=== PATIENT | male | born 1970 | race Caucasian/White ===

== ENCOUNTER 2024-08-07 13:57 | Outpatient (AMB) | payer MEDICARE, SELFPAY ==
--- NOTE | 2024-08-07 14:03 | MHC.PC.OV ---
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 Intake Note: New patient visit Contract Negotiation Specialist Required: No Allergies ibuprofen [From Motrin] Allergy (Unknown, Verified 08/07/24 14:05) Unknown NSAIDS (Non-Steroidal Anti-Inflamma Allergy (Unknown, Verified 08/07/24 14:05) Unknown Tobacco use date assessed: 08/07/24 Dental Screening Dental Screen Date: 08/07/24 Did you have a dental visit in the last 12 months?: Yes Did you have a dental problem in the last 6 months where you did not have access to dental care?: No Was dental information given to patient?: Patient has dentist HPI HPI Comments History of Present Illness Details 54 year old male with a past medical history of hypertension, anxiety & depression, diverticulitis, tinnitus and MARINA presenting for follow up BH: Anxiety, depression stable. Lots of psychosocial stressors. On sertraline-was last sent for 50mg was taking 75mg. CV: on amlodipine 10mg daily. Family history of heart of disease. Interested in coronary artery calcium testing. Also interested in GLP. He has been unable to lose weight with diet and exercise MSK: neck pain, radiculopathy-R. Colon cancer screening-[facility] DR Tonio [facility]AL: Denies weight loss, fever and chills. HEENT: Denies changes in vision and hearing. RESPIRATORY: Denies SOB and cough. CV: Denies palpitations and CP GI: Denies abdominal pain, nausea, vomiting and diarrhea. : Denies dysuria and urinary frequency. MSK: Denies new myalgia and joint pain. SKIN: Denies rash and pruritus. NEUROLOGICAL: Denies headache PSYCHIATRIC: Denies recent changes in mood. PHYSICAL EXAM: GENERAL: Alert and oriented x 3. NAD EYES: EOMI. Anicteric. HENT: Moist mucous membranes. No scleral icterus. No cervical lymphadenopathy. LUNGS: Clear to auscultation bilaterally. CARDIOVASCULAR: Regular rate and rhythm. No murmur. No JVD. ABDOMEN: Soft, non-tender +bs EXTREMITIES: No edema. Non-tender. SKIN: No rashes or lesions. Warm. NEUROLOGIC: No focal neurological deficits. CN II-XII grossly intact PSYCHIATRIC: Cooperative. Appropriate mood and affect PFSH Surgical History Hx of cholecystectomy Hx of appendectomy Family History (Updated 08/07/24 @ 14:07 by Faith Shah CMA) Maternal Grandmother Colon cancer Other FH: mental illness Substance use Social History Housing: House Patient Tobacco Use Status: Former Tobacco user Cigarette Packs Per Day: 1 Years Smoked: 15 service: No Current occupational status: employed Current occupation: Customer relations Current occupational exposures/hazards: No Hearing needs: Yes (hearing loss both ears) Vision needs: Yes (glasses) Questionnaire PHQ-9 Over the last 2 weeks, how often have you been bothered by any of the following problems? 1. Little interest or pleasure in doing things: not at all 2. Feeling down, depressed, or hopeless: not at all 3. Trouble falling or staying asleep, or sleeping too much: not at all 4. Feeling tired or having little energy: not at all 5. Poor appetite or overeating: several days 6. Feeling bad about yourself - or that you are a failure or have let yourself or your family down: not at all 7. Trouble concentrating on things, such as reading the newspaper or watching television: not at all 8. Moving or speaking so slowly that other people could have noticed. Or the opposite - being so fidgety or restless that you have been moving around a lot more than usual: not at all 9. Thoughts that you would be better off or of hurting yourself in some way: not at all Total score: 1 Depression Screening Interpretation: Negative Depression Screening Done: Yes 41019 - PHQ-9 Billing: Yes Source: Developed by Drs. Kingsley Post, Sharda Plasencia, Michael Vivar and colleagues, with an educational shauna from [email or web address]. Thrive Questionnaire Date Thrive assessed: 07/31/24 I am a: Patient What is your living situation today?: I have a steady place to live Within the past 12 months, did the food you bought not last and you didn't have the money to get more?: Never true Within the past 12 months, did you worry whether your food would run out before you got money to buy more?: Never true Do you have trouble paying for medicines?: No Do you have trouble getting transportation to medical appointments?: No Do you have trouble paying your heating and electricity bill?: No Do you have trouble taking care of your child, family member or friend?: No Do you have trouble with day-to-day activities such as bathing, preparing meals, shopping, managing finances, etc.?: No Are you currently unemployed and looking for a job?: No Are you interested in more education?: No Please select the resources that you would like help with: None Currently or been in a relationship where the following occur: No concerns reported THRIVE Score: 0 AUDIT C Alcohol Use Questionnaire (AUDIT-C) 1. How often do you have a drink containing alcohol?: 2-3 times a week 2. How many drinks containing alcohol do you have on a typical day when you are drinking?: 3 or 4 3. How often do you have six or more drinks on one occasion?: Monthly Total Score: 6 ANN-7 AMB Questionnaire ANN-7 Date ANN - 7 assessed: 08/07/24 Feeling nervous, anxious, or on edge: 0 = Not at all Not being able to stop or control worryin = Not at all Worrying too much about different things: 0 = Not at all Trouble relaxin = Not at all Being so restless that it is hard to sit still: 0 = Not at all Becoming easily annoyed or irritable: 0 = Not at all Feeling afraid as if something awful might happen: 0 = Not at all Total ANN-7 score (0-4 normal; 5-9 mild; 10-14 moderate; 15-21 severe): 0 Source: Developed by Drs. Kingsley Post, Sharda Plasencia, Michael Vivar and colleagues, with an educational shauna from [email or web address]. ANN-7 Assessment Billing ANN-7 Assessment Tool: ANN-7 Assessment 21851 Physical exam (Primary Care) Vital Signs: Last Vital Signs Pulse 67 08/07/24 14:12 BP 136/84 08/07/24 14:12 Pulse Ox 97 08/07/24 14:12 Oxygen Delivery Method Room Air 08/07/24 14:12 Tobacco/Smoking Status: Tobacco use Status Tobacco use date assessed 08/07/24 08/07/24 14:16 Patient Tobacco Use Status Former Tobacco user 08/07/24 14:16 PHQ-9: PHQ-9 Score PHQ-9: Total score 1 08/07/24 14:21 Depression Screening Interpretation: Negative Thrive Assessment: Date of Thrive Assessment Date Thrive assessed 07/31/24 08/07/24 14:16 Currently or been in a relationship where the following occur: No concerns reported Coding Level of Care Code Est Pt Level 4 (72923) Complex EM visit Add On G2211 Diagnoses Primary hypertension I10 Hypertension type: primary hypertension Recurrent major depressive disorder, in partial remission F33.41 Major depression recurrence: recurrent Active/Remission status: in partial remission Cervical radiculitis M54.12 Additional Codes ANN-7 Assessment Billing - ANN-7 Assessment Tool: ANN-7 Assessment [id number] ([id number]) PHQ-9 - 89220 - PHQ-9 Billing: Yes ([id number]) Assessment & Plan Assessment & Plan (1) Hypertension: Code(s): I10 - Essential (primary) hypertension Category: Medical Qualifiers: Hypertension type: primary hypertension Qualified Code(s): I10 - Essential (primary) hypertension Plan: controlled on current medications (2) Major depression: Code(s): F32.9 - Major depressive disorder, single episode, unspecified Category: Medical Qualifiers: Major depression recurrence: recurrent Active/Remission status: in partial remission Qualified Code(s): F33.41 - Major depressive disorder, recurrent, in partial remission Plan: Corrected script to 75 mg daily (3) Cervical radiculitis: Code(s): M54.12 - Radiculopathy, cervical region Category: Medical Plan: stable. consider xray, referral if worsens Plan Obesity, htn. Wegovy ordered Orders: Orders CT Coronary Calcium Score 08/07/24 Complete Blood Count Auto Diff 08/07/24 F32.9 - Major depressive disorder, single episode, unspecified, I10 - Essential (primary) hypertension, M54.12 - Radiculopathy, cervical region, R73.01 - Impaired fasting glucose, Z13.0 - Encounter for screening for diseases of the blood and blood-forming organs and certain disorders involving the immune mechanism, Z13.228 - Encounter for screening for other metabolic disorders Comprehensive Met. Panel 08/07/24 F32.9 - Major depressive disorder, single episode, unspecified, I10 - Essential (primary) hypertension, M54.12 - Radiculopathy, cervical region, R73.01 - Impaired fasting glucose, Z13.0 - Encounter for screening for diseases of the blood and blood-forming organs and certain disorders involving the immune mechanism, Z13.228 - Encounter for screening for other metabolic disorders Lipid Panel 08/07/24 F32.9 - Major depressive disorder, single episode, unspecified, I10 - Essential (primary) hypertension, M54.12 - Radiculopathy, cervical region, R73.01 - Impaired fasting glucose, Z13.0 - Encounter for screening for diseases of the blood and blood-forming organs and certain disorders involving the immune mechanism, Z13.228 - Encounter for screening for other metabolic disorders Hemoglobin A1c 08/07/24 F32.9 - Major depressive disorder, single episode, unspecified, I10 - Essential (primary) hypertension, M54.12 - Radiculopathy, cervical region, R73.01 - Impaired fasting glucose, Z13.0 - Encounter for screening for diseases of the blood and blood-forming organs and certain disorders involving the immune mechanism, Z13.228 - Encounter for screening for other metabolic disorders Prostate Specific Antigen 08/07/24 I10 - Essential (primary) hypertension, R73.01 - Impaired fasting glucose, Z12.5 - Encounter for screening for malignant neoplasm of prostate, Z13.0 - Encounter for screening for diseases of the blood and blood-forming organs and certain disorders involving the immune mechanism, Z13.228 - Encounter for screening for other metabolic disorders Medications: Rene Cantu (semaglutide (weight loss)) administer weeks 1 through 4 of therapy 0.25 mg (0.5 mL) subcut QWEEK 2 mL 3RF NS azithromycin 500 mg PO DAILY 5 tabs 0RF 5 days Changed From sertraline 50 mg PO DAILY 90 tabs 3RF To sertraline 75 mg (1.5 x 50 mg) PO DAILY 90 tabs 3RF Refilled amlodipine 10 mg PO DAILY 90 tabs 3RF
[2024-08-07 14:12] VITALS: BP 136/84; PULSE 67; O2SAT 97
== END 2024-08-07 15:00 | disposition home or self-care (01) ==
PROVIDERS: PCP Internal Medicine; Visit Provider Internal Medicine
DX: I10 Essential (primary) hypertension (principal); F33.41 Major depressive disorder, recurrent, in partial remission; M54.12 Radiculopathy, cervical region

== ENCOUNTER → 2024-08-07 13:57 | Outpatient (BNVA) | payer OTHER, SELFPAY | PROVIDERS: PCP Internal Medicine; Visit Provider Internal Medicine | DX: I10 Essential (primary) hypertension (principal); F33.41 Major depressive disorder, recurrent, in partial remission; M54.12 Radiculopathy, cervical region; Z79.899 Other long term (current) drug therapy | CPT/HCPCS: 96127 ==

== ENCOUNTER 2024-08-07 15:03 | Outpatient (REF) | payer OTHER, SELFPAY ==
[2024-08-07 17:39] LABS: MANUAL DIFF FLAG NO
[2024-08-07 17:53] LABS: Basophils Absolute Auto 0.1 X10*3/uL (0.0-0.2); Basophils Percent Auto 0.5 % (0-2); Eosinophils Absolute Auto 0.2 X10*3/uL (0.0-0.4); Eosinophils Percent Auto 1.9 % (0-4); Hematocrit 46.4 % (42.0-52.0); Hemoglobin 16.2 g/dl (14.0-18.0); Imm Gran Abs Auto 0.06 X10*3/uL (0.00-0.03); Imm Gran Pct Auto 0.6 % (0.0-0.4); Lymphocytes Absolute Auto 2.3 X10*3/uL (1.2-4.9); Lymphocytes Percent Auto 21.2 % (20-40); Mean Corpuscular HGB Conc 34.9 g/dl (31.0-36.0); Mean Corpuscular Hemoglobin 32.3 pg (27.0-33.0); Mean Corpuscular Volume 92.6 fL (80.0-98.0); Monocytes Percent Auto 9.7 % (2-11); Neutrophils Absolute Auto 7.1 x10*3/uL (2.0-8.3); Neutrophils Percent Auto 66.1 % (45-73); Platelet Count 296 X10*3/uL (160-400); Red Blood Count 5.01 X10*6/uL (4.60-5.80); Red Cell Distribution Width 12.4 % (11.0-16.0); White Blood Count 10.7 X10*3/uL (4.8-10.8)
[2024-08-07 18:26] LABS: Alanine Aminotransferase 67 U/L (0-40); Albumin Level 4.2 g/dL (3.5-5.0); Alkaline Phosphatase 61 U/L (39-117); Anion Gap 9 (12-20); Aspartate Amino Transferase 39 U/L (5-37); Bilirubin Total 0.4 mg/dL (0.0-1.0); Blood Urea Nitrogen 10 mg/dL (9-16); Calcium 9.1 mg/dL (8.4-10.2); Carbon Dioxide 25 mmol/L (22-29); Chloride 110 mmol/L (96-108); Cholesterol 185 mg/dL (<200); Estimated Glomerular Filt Rate > 60; Glucose Random 71 mg/dL (60-115); HDL Cholesterol 39 mg/dL (>40); LDL Cholesterol Calculated 104 mg/dL (<100); Potassium 3.6 mmol/L (3.3-5.1); Sodium 140 mmol/L (135-145); Total Protein 7.6 g/dL (6.5-8.0); Triglycerides 211 mg/dL (<150)
[2024-08-07 18:45] LABS: Prostate Specific Antigen 0.78 ng/mL (<0.05-4.0)
[2024-08-08 06:04] LABS: Estimated Average Glucose 100 mg/dL; Hemoglobin A1C 128.5397 umol/L; Hemoglobin A1c % 5.1 % (<6.0); Total Hemoglobin (HGBA1C) 4026.2945 umol/L
== END 2024-08-07 15:04 | disposition home or self-care (01) ==
LOC: HO.WFDLDS 15:03
PROVIDERS: Visit Provider Internal Medicine
DX: I10 Essential (primary) hypertension (principal); F32.9 Major depressive disorder, single episode, unspecified; M54.12 Radiculopathy, cervical region; Z13.0 Encounter for screening for diseases of the blood and blood-forming organs and certain disorders involving the immune mechanism; Z13.228 Encounter for screening for other metabolic disorders; R73.01 Impaired fasting glucose; Z12.5 Encounter for screening for malignant neoplasm of prostate
CPT/HCPCS: 36415; 80053; 80061; 83036; 84153; 85025

== ENCOUNTER 2024-08-14 09:51 | Outpatient (AMB) | payer OTHER, SELFPAY ==
--- NOTE | 2024-08-14 10:16 | MHC.OFFWIV ---
Intake Vital Signs 08/14/24 10:20 Height 5 ft 11 in Weight 276 lb BMI 38.5 BP 142/78 H Blood Pressure Location Lt brachial Position Sitting Respiration 14 Pulse 54 Pulse Source Pulse Oximeter Temp 97.8 F Temp Source Oral Pulse Oximetry (%) 96 Oxygen Delivery Method Simple Mask Intake Visit Reasons: EST/ SORE THROAT/TIRED/COLD/EAR RINGING Intake Note: Patient complaining of sore throat, congestion, cough with production, ears feel blocked, tired and bodyaches x 2 weeks Patient Tobacco Use Status: Former Tobacco user Allergies ibuprofen [From Motrin] Allergy (Unknown, Verified 08/14/24 10:27) Unknown NSAIDS (Non-Steroidal Anti-Inflamma Allergy (Unknown, Verified 08/14/24 10:27) Unknown Medication List - Last Reconciled 08/14/24 by Bettina Jerome, [facility]- amlodipine 10 mg PO DAILY azithromycin 500 mg PO DAILY 5 days sertraline 75 mg (1.5 x 50 mg) PO DAILY Wegovy (semaglutide (weight loss)) 0.25 mg (0.5 mL) subcut QWEEK NS Do you need a note to return to daycare/school/sports/work: No HPI HPI Comments History of Present Illness Details 54-year-old male here today with chief complaints of sore throat, ringing and fullness in the ears and sinus congestion that has been present for greater than 2 weeks. He reports that he developed general flu-like symptoms several weeks ago. He recently saw his primary care provider who prescribed him azithromycin 500 mg for 5 days. This was prescribed 08/07/2024. He did complete the course however he did not have improvement in his symptoms. Exam Awake alert NAD Sclera and conjunctiva clear bilat Nares patent, turbinates edematous bilat, nasal polyp on the left, + sinus tenderness with palpation bilat frontal TM intact bilat, mild congestion on the left, bulging, dull, loss of landmarks on right MMM, pharynx mild erythema without exudate, posterior nasal drip RRR LS CTAB Plan Rapid strep done in the office today negative. We will treat him for acute bacterial sinusitis with Augmentin. Educated about taking medication with food. Also prescribe prednisone for 3 days to help decompress his sinuses and to help with his symptoms. Advised to also take this with food. If he does not have improvement or resolution of his symptoms advised to return to the office for further evaluation. This note is constructed using voice recognition software. While every effort has been made to ensure accuracy in surgical rn, still errors may have been included Sometimes, these errors may affect the content or meaning of the given sentence . [facility] Surgical History Hx of cholecystectomy Hx of appendectomy Family History (Updated 08/07/24 @ 14:07 by Faith Shah CMA) Maternal Grandmother Colon cancer Other FH: mental illness Substance use Social History Housing: House Patient Tobacco Use Status: Former Tobacco user Cigarette Packs Per Day: 1 Years Smoked: 15 service: No Current occupational status: employed Current occupation: Customer relations Current occupational exposures/hazards: No Hearing needs: Yes (hearing loss both ears) Vision needs: Yes (glasses) Physical Exam Vital Signs: Last Vital Signs Temp 97.8 F 08/14/24 10:20 Pulse 54 08/14/24 10:20 Resp 14 08/14/24 10:20 BP 142/78 H 08/14/24 10:20 Pulse Ox 96 08/14/24 10:20 Oxygen Delivery Method Simple Mask 08/14/24 10:20 BMI result Body Mass Index 38.5 Results AMB Rapid Strep AMB Rapid Strep Negative Last Edit by Em Okeefe MA on 08/14/24 10:33 Results Reviewed Results Reviewed: Laboratory Last Values Strep Scn Rapid Clinic Negative 08/14/24 10:26 Assessment & Plan Assessment & Plan (1) Acute bacterial sinusitis: Code(s): J01.90 - Acute sinusitis, unspecified; B96.89 - Other specified bacterial agents as the cause of diseases classified elsewhere Plan . Orders: Orders AMB Rapid Strep Screen Today Z13.9 - Encounter for screening, unspecified Medications: New amoxicillin-pot clavulanate 875-125 mg 1 tab PO BID 7 days 14 tabs 0RF prednisone 20 mg PO DAILY 3 tabs 0RF Discontinued azithromycin Discontinued Reason: Patient Completed Course 500 mg PO DAILY 5 days 5 tabs 0RF Patient Instructions: What Is It? Sinuses are air-filled spaces behind the bones of the upper face: between the eyes and behind the forehead, nose and cheeks. The lining of the sinuses are made up of cells with tiny hairs on their surfaces called cilia. Other cells in the lining produce mucus. The mucus traps germs and pollutants and the cilia push the mucus out through narrow sinus openings into the nose. When the sinuses become inflamed or infected, the mucus thickens and clogs the openings to one or more sinuses. Fluid builds up inside the sinuses causing increased pressure. Also bacteria can become trapped, multiply and infect the lining. This is sinusitis. Prevention There are some measures you can take to decrease your risk of developing sinusitis. If you smoke cigarettes, you should quit. The smoke can irritate nasal passageways and increase the likelihood of infection. Nasal allergies can trigger sinus infections, too. By identifying the allergen (the substance causing the allergic reaction) and avoiding it, you can help prevent sinusitis. If you have congestion from a cold or allergies, the following may help to reduce the risk of developing sinusitis: Drink lots of water. This thins nasal secretions and keeps mucous membranes moist. Use steam to soothe nasal passages. Breathe deeply while standing in a hot shower, or inhale the vapor from a basin filled with hot water while holding a towel over your head. Avoid blowing your nose with great force, which can push bacteria into the sinuses. Some doctors advise periodic home nasal washings to clear secretions. This may help prevent, and also treat, sinus infections. Treatment Many sinus infections improve without treatment. However, several medications may speed recovery and reduce the chance that an infection will become chronic. Decongestants - Congestion often triggers sinus infections, and decongestants can open the sinuses and allow them to drain. Several are available: Pseudoephedrine (Sudafed) is available without prescription, alone or in combination with other medications in multi-symptom cold and sinus remedies. Pseudoephedrine can cause insomnia, racing pulse and jitteriness. Do not use if you have high blood pressure or a heart condition. Phenylephrine (such as Sudafed PE) is an alternative cukv-tyx-rkspivz oral decongestant. If you take products containing oral phenylephrine, check with the pharmacist to be certain there is no interaction with other medications you take. Oxymetazoline (Afrin, Dristan and others) and phenylephrine (Denilson-Synephrine and others) are found in nasal sprays. They are effective and may be less likely to cause the side effects seen with pseudoephedrine. However, using a nasal decongestant for more than three days can cause worse symptoms when you stop the medication. This is called the rebound effect. Antihistamines - These medications help to relieve the symptoms of nasal allergies that lead to inflammation and infections. However, some doctors advise against using antihistamines during a sinus infection because they can cause excessive drying and slow the drainage process. Vwsi-aza-lwecnxg antihistamines include diphenhydramine (Benadryl and others), chlorpheniramine (Chlor-Trimeton and others) and loratadine (Claritin). Fexofenadine (Carleen) and cetrizine (Zyrtec) are available by prescription. Nasal steroids - Anti-inflammatory sprays such as mometasone (Nasonex) and fluticasone (Flonase), both available by prescription, reduce swelling of nasal membranes. Like antihistamines, nasal steroids can be most useful for those who have nasal allergies. Nasal steroids tend to produce less drying than antihistamines. Unlike nasal decongestants, nasal steroids can be used for prolonged periods. Saline nasal sprays - These salt-water sprays are safe to use and can provide some relief by adding moisture to the nasal passages, thinning mucus secretions and helping to flush out any bacteria that may be present. Pain relievers - Acetaminophen (Tylenol), ibuprofen (Advil, Motrin and others) or naproxen (Aleve) can be taken sinus pain. Antibiotics - Your doctor may prescribe an antibiotic if he or she suspects that a bacterial infection is causing your sinusitis. If you start taking an antibiotic, complete the entire course so that the infection is completely killed off. Not all cases of sinusitis require antibiotic treatment: Talk with your doctor about whether an antibiotic is right for you. Keep in mind that antibiotics can cause side effects, such as allergic reactions, rash and diarrhea. In addition, overusing antibiotics eventually leads to the spread of bacteria that no longer can be killed by the most commonly prescribed antibiotics. When To Call A Professional Contact a doctor if you experience facial pain along with a headache and fever, cold symptoms that last longer than seven to 10 days, or persistent green discharge from the nose. If your symptoms don't improve within a week of beginning treatment, call your doctor. Call sooner if symptoms are getting worse. If you have repeated bouts of acute sinusitis, you may have allergies or another treatable cause of sinus congestion. Ask your doctor for advice. Coding Level of Care Code Est Pt Level 3 (28838) Diagnoses Acute bacterial sinusitis J01.90; B96.89
[2024-08-14 10:20] VITALS: BP 142/78; PULSE 54; RESP 14; TEMP 36.6; O2SAT 96; BMI 38.5
--- OUTSIDE RECORDS SUMMARY | 2024-08-16 14:14 | XMS_ITS | Continuity of Care Document ---
Author Organization [facility] Rufino Abdiaziz lt Address [address] [place] [address]- Care Team Providers Care Cage Clerk Name Role Phone Not on Staff, PCP Primary Care Physician Unavail able Encounter [facility] Date(s): 07/04/24 - 08/03/24 [facility] [place] Adult [address] [place] [address]- Encounter Type: Triage Allergies, Adverse Reactions, Alerts Substance Criticality Severity Reaction Reaction Severity Status Motrin Active NSAIDs Active Immunizations Given and Recorded Vaccine Date Status Refusal Reason influenza virus vaccine, inactivated 07/25/21 Give n SARS-CoV-2 (COVID-19) mRNA-1273 vaccine 12/15/20 R ecorded SARS-CoV-2 (COVID-19) mRNA-1273 vaccine 11/17/20 R ecorded tetanus/diphtheria/pertussis, acel(Tdap) 07/02/11 Recorded tetanus-diphtheria toxoids (Td) 03/20/02 Recorded Medications amLODIPine 10 mg oral tablet 10 mg, 1, tablet, By Mouth, Daily, # 90 tablet, Refills 0, Maintenance, 07/24/21 12:43:00 AM EST, Partial fill upon patient request if the prescription is for a schedule II opioid drug. Start Date: 07/24/21 Status: Ordered Quantity: 90.0 Unit: tablet Repeat number: 1 metroNIDAZOLE 500 mg oral tablet See Instructions, TAKE 1 TABLET BY MOUTH TWICE A DAY FOR 7 DAYS, # 14 tablet, 0 Refills, Maintenance, 08/25/23 12:39:00 PM EST, [id number], 177, cm, 07/23/23 9:35:00 EST, Height, 120.5, kg, 07/19/23 15:55:00 EST, Dry Weight Start Date: 08/25/23 Status: Ordered Quantity: 14.0 Unit: tablet Repeat number: 1 Sertraline = 75 mg, By Mouth, Daily, 0 Refills, Maintenance, 07/24/21 12:44:00 AM EST, Partial fill upon patient request if the prescription is for a schedule II opioid drug. Start Date: 07/24/21 Status: Ordered Repeat number: 1 sertraline 50 mg oral tablet See Instructions, TAKE 1 AND 1/2 TABLETS BY MOUTH DAILY, # 135 tablet, 3 Refills, Maintenance, 09/25/23 4:15:00 PM EST, [id number], 177, cm, 07/23/23 9:35:00 EST, Height, 120.5, kg, 07/19/23 15:55:00 EST, Dry Weight Start Date: 09/25/23 Status: Ordered Quantity: 135.0 Unit: tablet Repeat number: 4 Tylenol 325 mg oral tablet 650 mg, 2, tablet, By Mouth, 4 times a day, # 50 tablet, Refills 0, Tot. Refills 0, Soft Stop, 07/25/21 9:44:00 AM EST, Route to Pharmacy Electronically, [facility], Partial fill upon patient request if the prescription is for a schedule II opioid drug., 180, cm, 07/24/21 13:57:00 EST, Height, 116, kg, 07/24/21 0:37:00 EST, Dry Weight Start Date: 07/25/21 Stop Date: 08/01/21 Status: Ordered Quantity: 50.0 Unit: tablet Repeat number: 1 Problem List Condition Confirmation Course Effective Dates Status Health St atus Informant Anxiety Confirmed Active Cervical radiculitis Confirmed Active Hiatal hernia Confirmed Active Hypertension Confirmed Active Major depressive disorder, recurrent Confirmed Active Scleritis Confirmed Active Severe obesity (BMI 35.0-39.9) with comorbidity Confirmed Active Apnea, sleep Confirmed Active Tinnitus Confirmed Active Social History Social History Type Response Smoking Status Former smoker, quit more than 30 days ago; Other: Quit in 2004- PPD; entered on: 07/23/23 Sex Sex Representation Male (finding) Patient Care team information Care Team Personnel Name: Ifeanyi Kelley RN Position: [facility] RN Member Role: Primary Care Nurse Name: Not on Staff, PCP Position: [facility] Physician (General Medicine) Member Role: PCP Care Team Related Persons Name: VALENTIN HOLLANDHLEEN Insurance Providers Guarantor name: CHAPIS [facility] [employer] [facility] Information #: 1 Payer: [employer] Member Number: NA Policy Number: NA Group Number: NA
== END 2024-08-14 10:50 | disposition home or self-care (01) ==
PROVIDERS: PCP Internal Medicine; Visit Provider Nurse Practitioner Family
DX: J01.90 Acute sinusitis, unspecified (principal); B96.89 Other specified bacterial agents as the cause of diseases classified elsewhere; Z13.9 Encounter for screening, unspecified

== ENCOUNTER → 2024-08-14 09:51 | Outpatient (BNVA) | payer OTHER, SELFPAY | PROVIDERS: PCP Internal Medicine; Visit Provider Nurse Practitioner Family | DX: J01.90 Acute sinusitis, unspecified (principal); B96.89 Other specified bacterial agents as the cause of diseases classified elsewhere | CPT/HCPCS: 87880 ==

== ENCOUNTER 2025-03-27 15:47 | Outpatient (AMB) | payer BC, SELFPAY ==
--- NOTE | 2025-03-27 16:09 | A.OFFPC_ITS ---
Vital Signs 03/27/25 16:18 Height 5 ft 11 in Weight 264 lb 4 oz BMI 36.9 BP 134/82 Blood Pressure Location Lt brachial Position Sitting Respiration 14 Pulse 64 Pulse Source Pulse Oximeter Pulse Oximetry (%) 99 Oxygen Delivery Method Room Air Intake Visit Reasons: anxiety Allergies ibuprofen (From Motrin) Allergy (Unknown, Verified 08/14/24 10:27) Unknown NSAIDS (Non-Steroidal Anti-Inflamma Allergy (Unknown, Verified 08/14/24 10:27) Unknown Tobacco use date assessed: 08/07/24 Dental Screening Dental Screen Date: 08/07/24 HPI HPI Comments History of Present Illness Details 54 year old male with a past medical his tory of hypertension, anxiety & depression, diverticulitis, tinnitus and MARINA presenting for follow up BH: Anxiety, depression-currently on zoloft 75mg daily. Increase anxiety, finding it hard to concentrate, recall peoples names. Lots of psychosocial stressors. CV: on amlodipine 10mg daily. Family history of heart of disease. Ordered coronary calcium. He has lost 12 pounds since his last visit MSK: neck pain, radiculopathy-stable GI: Patient reports continued left sided abdominal discomfort and a small umbilical hernia. He had a cat scan in 2022. Colon cancer screening mnd-[facility] DR Tonio VICKERS see HPI PHYSICAL EXAM: GENERAL: Alert and oriented x 3. NAD EYES: EOMI. Anicteric. HENT: Moist mucous membranes. No scleral icterus. No cervical lymphadenopathy. LUNGS: Clear to auscultation bilaterally. CARDIOVASCULAR: Regular rate and rhythm. No murmur. No JVD. ABDOMEN: Soft, non-tender +bs, small umbilical hernia ~4cm palpable abdominal mass/lipoma EXTREMITIES: No edema. Non-tender. SKIN: No rashes or lesions. Warm. NEUROLOGIC: No focal neurological deficits. CN II-XII grossly intact PSYCHIATRIC: Cooperative. Appropriate mood and affect PFSH Surgical History Hx of cholecystectomy Hx of appendectomy Family History Maternal Grandmother Colon cancer Other FH: mental illness Substance use Social History Housing: House Patient Tobacco Use Status: Former Tobacco user Cigarette Packs Per Day: 1 Years Smoked: 15 service: No Current occupational status: employed Current occupation: Customer relations Current occupational exposures/hazards: No Hearing needs: Yes (hearing loss both ears) Vision needs: Yes (glasses) Questionnaire PHQ-9 Over the last 2 weeks, how often have you been bothered by any of the following problems? 1. Little interest or pleasure in doing things: several days 2. Feeling down, depressed, or hopeless: several days 3. Trouble falling or staying asleep, or sleeping too much: not at all 4. Feeling tired or having little energy: several days 5. Poor appetite or overeating: nearly every day 6. Feeling bad about yourself - or that you are a failure or have let yourself or your family down: several days 7. Trouble concentrating on things, such as reading the newspaper or watching television: several days 8. Moving or speaking so slowly that other people could have noticed. Or the opposite - being so fidgety or restless that you have been moving around a lot more than usual: not at all 9. Thoughts that you would be better off or of hurting yourself in some way: not at all Total score: 8 Depression Screening Interpretation: Positive Depression Screening Done: Yes 15000 - PHQ-9 Billing: Yes Source: Developed by Drs. Kingsley Post, Sharda Plasencia, Michael Vivar and colleagues, with an educational shauna from [employer]. Thrive Questionnaire Date Thrive assessed: 07/31/24 I am a: Patient What is your living situation today?: I have a steady place to live Within the past 12 months, did the food you bought not last and you didn't have the money to get more?: Never true Within the past 12 months, did you worry whether your food would run out before you got money to buy more?: Never true Do you have trouble paying for medicines?: No Do you have trouble getting transportation to medical appointments?: No Do you have trouble paying your heating and electricity bill?: No Do you have trouble taking care of your child, family member or friend?: No Do you have trouble with day-to-day activities such as bathing, preparing meals, shopping, managing finances, etc.?: No Are you currently unemployed and looking for a job?: No Are you interested in more education?: No Please select the resources that you would like help with: None Currently or been in a relationship where the following occur: No concerns reported THRIVE Score: 0 AUDIT C Alcohol Use Questionnaire (AUDIT-C) 1. How often do you have a drink containing alcohol?: 2-4 times a month 2. How many drinks containing alcohol do you have on a typical day when you are drinking?: 3 or 4 3. How often do you have six or more drinks on one occasion?: Monthly Total Score: 5 ANN-7 AMB Questionnaire ANN-7 Date ANN - 7 assessed: 08/07/24 Feeling nervous, anxious, or on edge: 2 = More than half the days Not being able to stop or control worryin = Several days Worrying too much about different things: 1 = Several days Trouble relaxin = Several days Being so restless that it is hard to sit still: 1 = Several days Becoming easily annoyed or irritable: 2 = More than half the days Feeling afraid as if something awful might happen: 0 = Not at all Total ANN-7 score (0-4 normal; 5-9 mild; 10-14 moderate; 15-21 severe): 8 Source: Developed by Drs. Kingsley Post, Sharda Plasencia, Michael Vivar and colleagues, with an educational shauna from [employer]. Physical exam (Primary Care) Tobacco/Smoking Status: Tobacco use Status Tobacco use date assessed 08/07/24 03/27/25 16:11 Patient Tobacco Use Status Former Tobacco user 03/27/25 16:11 PHQ-9: PHQ-9 Score PHQ-9: Total score 8 03/27/25 16:11 Depression Screening Interpretation: Positive Thrive Assessment: Date of Thrive Assessment Date Thrive assessed 07/31/24 03/27/25 16:11 Currently or been in a relationship where the following occur: No concerns reported Coding Level of Care Code Est Pt Level 4 (07483) Complex EM visit Add On G2211 Diagnoses Recurrent major depressive disorder, in partial remission F33.41 Major depression recurrence: recurrent Active/Remission status: in partial remission Impaired fasting glucose R73.01 Screening for metabolic disorder Z13.228 Abdominal mass, unspecified abdominal location R19.00 Abdominal location: unspecified location Additional Codes PHQ-9 - 56549 - PHQ-9 Billing: Yes ([id number]) Assessment & Plan Assessment & Plan (1) Major depression: Code(s): F32.9 - Major depressive disorder, single episode, unspecified Category: Medical Qualifiers: Major depression recurrence: recurrent Active/Remission status: in partial remission Qualified Code(s): F33.41 - Major depressive disorder, recurrent, in partial remission (2) Impaired fasting glucose: Code(s): R73.01 - Impaired fasting glucose Category: Medical (3) Screening for metabolic disorder: Code(s): Z13.228 - Encounter for screening for other metabolic disorders Category: Medical (4) Abdominal mass: Code(s): R19.00 - Intra-abdominal and pelvic swelling, mass and lump, unspecified site Category: Medical Qualifiers: Abdominal location: unspecified location Qualified Code(s): R19.00 - Intra-abdominal and pelvic swelling, mass and lump, unspecified site Plan 54 year old male presenting for follow up HTN-adequately controlled on current medications Anxiety is suboptimally controlled-start sertraline 100mg daily Trial adderal xr 10mg daily abdominal mass/lipoma-refer general surgery Orders: Referrals General Surgery Referral R19.00 - Intra-abdominal and pelvic swelling, mass and lump, unspecified site Medications: New sertraline 100 mg PO DAILY 90 tabs 3RF dextroamphetamine-amphetamine 10 mg ER (Adderall XR) Partial Fill upon patient request. 10 mg PO DAILY 30 caps 0RF Discontinued Wegovy (semaglutide (weight loss)) administer weeks 1 through 4 of therapy Discontinued Reason: Doctor's Order 0.25 mg (0.5 mL) subcut QWEEK 2 mL 3RF NS sertraline Discontinued Reason: Doctor's Order 75 mg (1.5 x 50 mg) PO DAILY 135 tabs 3RF amoxicillin-pot clavulanate 875-125 mg Discontinued Reason: Doctor's Order 1 tab PO BID 7 days 14 tabs 0RF
[2025-03-27 16:18] VITALS: BP 134/82; PULSE 64; RESP 14; O2SAT 99; BMI 36.9
--- OUTSIDE RECORDS SUMMARY | 2025-03-27 16:31 | XMS_ITS | Data Portability ---
Author Organization [place] - [facility], Allergy Address [address] [address] Care Team Providers [facility] Social Worker Name Role Phone LIZANDRO MEDINA Primary Care Provider [phone] Assessment Encounter Date Assessment Date Assessment LastModified by Organization Details LastModified Time 10/11/2024 10/11/2024 54-year-old male with history of otosclerosis status post right st[place] [address] Ward presents for reevaluation of his hearing. He reports gradual hearing loss in both ears over the last year. Bilateral tinnitus is stable. Cerumen impaction removed from right external auditory canal. TMs appear intact and well-aerated. Audiogram 06/2024 at [facility] demonstrated mixed hearing loss in normal range. We discussed he is not a candidate for hearing aids at this time. Recommend left stapedectomy consult with Dr. Ward with HTF in 2-3 months. [email or web address] Not available 10/11/2024 10:33:53 01/30/2025 01/30/2025 Patient with known otosclerosis who continues to demonstrate excellent postoperative hearing result on the right. He has very mild conductive component to his hearing loss bilaterally, which is likely indicative of early and stable otosclerosis on the left. Today we went over the audiometric testing and discussed the fact that while he may be having difficulty in certain listening environments, there is not enough hearing loss to warrant use of amplification. We discussed how hearing in background noise can be a natural artifact of the aging process. Reassurance provided. He may follow-up in the future with any additional perceived changes in hearing. [email or web address] Not available 01/30/2025 13:41:06 Plan of Treatment Reminders Order Date Submit Date Provider Last Modified By Organization Details Last Modified Time Details Appointments None record ed. Lab None record ed. Referral None record ed. Procedures None record ed. Surgeries None record ed. Imaging None record ed. Medication Orders None record ed. Patient TargetsNo targets recorded. Patient InstructionsNo instructions recorded. Reason for Referral None Reported. Results Created Date Observation Date Name Description Value Unit Range Abnormal Flag Note LastModifiedBy Organization Detail LastModifiedTime 01/31/20 25 audio gram No observ ation record ed. BARCODE Not Available 2024 15:45:56 Result Notes None recorded. Problems Name Problem SNOMED Code Status Onset Date Resolution Date Notes Provider Name and Address Organization Details Recorded Time Sensorine ural hearing loss of bilateral ears 452143245 Active 2014 Sensorine ural HL, bilateral Not Available [facility] 4 01:09:00 Unilatera l conductiv e hearing loss with unrestric tigist hearing on the contralat eral side Active 2014 Conductiv e hearing loss, unilatera l; Condition : improved Conducti ve hearing loss, unilatera l; Condition : improved Note: Date Diagnosed : 02/20/2015 4:17 PM (389.05) Not Available [facility] 4 02:50:14 Postopera tive follow-up visit Active 2014 Post op; Note: Date Diagnosed : 02/21/2015 7:29 AM (V67.00) Not Available [facility] 4 02:50:16 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 41074806 Active 2014 Otosclero sis involving oval window, nonoblite rative; Note: Changed from 387.9 to 387.0 ( 5 4:26 PM) , Date Diagnosed : 11/22/2014 11:08 AM (387.9) ; Start Date : 5 Otoscle rosis involving oval window, nonoblite rative, right ear; Note: Date Diagnosed : 5 9:07 AM (H80.01) [mapped from ICD9 code: 387.0] Not Available [facility] 4 02:50:11 Conductiv e hearing loss, bilateral 688049473 Active 2014 Conductiv e hearing loss, bilateral ; Note: Date Diagnosed : 11/22/2014 11:08 AM (389.06) ; Start Date : 5 Conduct reinier hearing loss, bilateral ; Note: Date Diagnosed : 5 9:15 AM (H90.0) [mapped from ICD9 code: 389.06] Not Available [facility] 4 02:50:14 Bilateral tinnitus 39611683353 02 Active 2024 TILA HAHN PA-C [address], [place], [address] , [facility] - [facility] 5 10:33:58 Mixed conductiv e and sensorine ural hearing loss, bilateral 409504503 Active 2024 TILA HAHN PA-C [address], [place], [address] , [place] - [facility] 5 10:34:48 Impacted cerumen in right ear 69036563424 76286 Active 2024 TIL[facility] HAHN [facility]-C [address] [facility] [place], [place], [address] , [place] - [facility] 5 10:35:17 Mixed conductiv e and sensorine ural hearing loss, bilateral 963265481 Active 2024 TAMEKA PORTILLO [address] [facility] [place] [address], [place], [address] , [facility] - [facility] 13:10:37 Otosclero sis 94097176 Active 2024 LINDY WARD MD [address] [facility] [place] [address], [place], [address] , [facility] - [facility] 13:40:12 Problem Notes None recorded. Procedures Surgical History Date Name Laterality Status Provider Name and Address Organization Details Recorded Time 5 Comp Audio with Tymps & Reflexes - 38100 & 63398 completed TAMEKA PORTILLO [address] [facility] [place], [place], [address], [facility] 01/30/2025 13:24:14 Cerumen removal without microscope right completed TILA HAHN PA-C [address] [place] [address], [place], [address], [facility] 10/11/2024 10:29:38 Imaging Results None recorded. Procedure Notes None recorded. Medical Equipment None Reported. Allergies Allergen ID Allergen Name Allergen Category Reaction Reaction Severity Criticality Documentation Date Start Date Code Code System Note Provider Name and Address Organization Details Recorded Time 731475 Non-stero idal anti-infl ammatory agent (product) medicatio n anaphylax is rash moderate moderate Not available 01/30/2025 68137 005 SNOMED Judy romero [facility] 12:50:36 196608 ragweed pollen environme nt Not available Not available Not available 01/30/2025 72014 UNK Judy romero [facility] 12:50:36 Medications Name Sig Start Date Stop Date Status Note LastModified by Organization Details LastModified Time prednison e 20 mg tablet TAKE 1 TABLET BY MOUTH EVERY DAY 10/11 completed Not Available Not Available Not Available metronida zole 500 mg tablet TAKE 1 TABLET BY MOUTH TWICE DAILY FOR 7 DAYS 10/11 completed Not Available Not Available Not Available Ciloxan 0.3 % eye drops 10/11 completed Medicati on ID: [id number] Du ration Value: 10 Prescri bed By Name: HAYLEE Jackson nd Name: Ciloxan Send Method: E-Prescr ibed Sub s Allowed: subs OK Speci al Instruct ion: Instill 4 drops twice a day into affected ear for 10 days Med icationG enericNa me: Ciloxan Not Available Not Available Not Available amlodipin e 10 mg tablet TAKE 1 TABLET BY MOUTH ONCE DAILY active Not Available Not Available No t Available omeprazol e 20 mg capsule,d elayed release TAKE 1 CAPSULE BY MOUTH EVERY DAY 10/11 completed Not Available Not Available Not Available methylpre dnisolone 4 mg tablets in a dose pack TAKE DIRECTED ON PACKAGE LABELING 10/11 completed Not Available Not Available Not Available Reading 5 mg-325 mg tablet 1-2 tablet by mouth 10/11 completed Medicati on ID: [id number] Du ration Value: 7 Prescri bed By Name: Lindy Ward M.D. Bra santos Name: Storm Cassidy nd Method: E-Prescr ibed Sub s Allowed: subs OK Medic ationGen ericName : Storm Not Available Not Available Not Available sertralin e 50 mg tablet 75 mg every day by oral route. 2024 active Not Available Not Available Not Avai lable amoxicill in 875 mg-potass ium clavulana te 125 mg tablet TAKE 1 TABLET BY MOUTH TWICE A DAY FOR 7 DAYS 10/11 completed Not Available Not Available Not Available azithromy zachariah 500 mg tablet TAKE 1 TABLET BY MOUTH EVERY DAY FOR 5 DAYS 10/11 completed Not Available Not Available Not Available Paxlovid 300 mg (150 mg x 2)-100 mg tablets in a dose pack TAKE 2 TABLETS (NIRMATR JUAN C) AND TAKE 1 TABLET (RITONAV IR) BY MOUTH TWICE A DAY FOR 5 DAYS 10/11 completed Not Available Not Available Not Available Vitals Date Recorded Body height Body mass index (BMI) Body weight Provider Name and Address Organization Details Last Updated DateTime 10/11/2024 180.34 cm 36.3 kg/m2 203175.02 g Sherlyn Krishna [place] - [facility] 10/11/2024 09:51:51 Date Recorded Body height Body weight Provider Name and Address Organization Details Last Updated DateTime 01/30/2025 180.34 cm 945690.02 g Judy Hart [place] - [facility] 01/30/2025 12:50:22 Social History Question Answer Notes LastModified by Organizat ion Details LastModified Time Tobacco Smoking Status Former Smoker Judy romero [place] - [facility] 01/30/2025 12:51:18 How Many Years Have You Consumed Alcohol? 30 [email or web address] Information not available 01/30/2025 What Type Of Offset Assistant Press Operator Do You Use? None [email or web address] Information not available 01/30/2025 How Many Alcoholic Drinks Do You Consume Per Day On Average? 2 [email or web address] Information not available 01/30/2025 When Did You Quit Smoking? 16+yearssinc elastcigaret te [email or web address] Information not available 01/30/2025 What Is Your Current Pack Years? 10packyears [email or web address] Information not available 01/30/2025 Do You Have Any Pets? Yes [email or web address] Information not available 01/30/2025 At What Age Did You Start Smoking Tobacco? 12 [email or web address] Information not available 01/30/2025 Are You Passively Exposed To Smoke? No [email or web address] Information not available 01/30/2025 Are There Any Smokers In Your House? No [email or web address] Information not available 01/30/2025 How Much Tobacco Do You Smoke? No [email or web address] Information not available 01/30/2025 How Many Years Have You Smoked Tobacco? 19 [email or web address] Information not available 01/30/2025 Sex: Unknown Functional Status Question Answer Note LastModified by Organization Details LastModified Time How many times per week do you consume alcohol? 3-4 times per week [email or web address] Information not available 01/30/2025 Do you use any illicit or recreational drugs? No [email or web address] Information not available 01/30/2025 Do you or have you ever used any other forms of tobacco or nicotine? No [email or web address] Information not available 01/30/2025 What is your level of alcohol consumption? 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 noExposureToExcessiveNoise [email or web address] Infor mation not available 01/30/2025 Mental Status None recorded. Family History Nothing Reported. Medical History Condition Response Allergies/Hayfever Y Heart Problems N Anxiety Y Tonsil Infections N Emphysema N Migraines N Thyroid Problems N Glaucoma N Depression Y COPD N Developmental Delay N Nasal or Sinus Problems N Anemia N Immune System Disorder N Anesthesia Complications N Heart Attack ([place]) N Other Skin Condition N Diabetes N Rhinitis N Bleeding Disorder N Food Allergy N Arthritis N Hearing Loss Y Hyperlipidemia N Cancer N Stroke N Dementia N Nasal polyps Y Asthma N High Cholesterol N Sleep Disorder Y GERD/Reflux N Liver Disease N Headaches N Fibromyalgia N Hypertension Y Speech Delay N Kidney Disease N Past Encounters Encounter ID Performer Location Encounter Start Date Encounter Closed Date Diagnosis/Indication Diagnosis SNOMED-CT Code Diagnosis ICD10 Code Diagnosis Note [id number] TILA HAHN PA-C [facility] [address] [address] 10/11/2024 09:19:42 10/11/2024 10:20:28 Bilateral tinnitus 5594267722 102 H93.13 Today we discussed the pathophysi ology of tinnitus and the absence of consistent ly successful pharmacolo gic treatments for tinnitus. We discussed masking strategies to decrease awareness of the tinnitus, including using a white noise machine, music, or television . We discussed how exposure to loud noise can worsen tinnitus so I recommende d hearing protection . We also discussed other ways to potentiall y help reduce awareness of tinnitus including avoidance of caffeine, salty meals and NSAIDs. Mixed cond uctive and sensorineural hearing loss, bilateral 039287507 H90.6 Impacted c erumen in right ear 1151391317 076746 H61.21 [id number] LINDY WARD MD [facility] [address] [address] 01/30/2025 12:40:06 01/30/2025 13:40:26 Mixed conductive and sensorineural hearing loss, bilateral 068269096 H90.6 Audiologic al evaluation results: Mild to moderate mixed hearing loss with excellent word recognitio n, bilaterall y. Tympanomet ry:Right Ear:Type CLeft Ear:Type As Acoustic Reflexes:R ight:absen t ipsi and contraLeft :Absent ipsi and contra Otosclerosis 77292844 H8 0.93 Health Concerns Section Related Observation LastModified by Organization Detai ls LastModified Time None Recorded Concern Status LastModified by Organization Details LastModified Time None Recorded Advance Directives Directive None Recorded Payers Insurance Date Sequence Insurance Name Policy Number Policy Snell Covered Member ID Snell Member ID Guarantor Name 01/30/2025 2 [employer] [id number] Noam Austin [id number] Noam Austin 01/30/2025 1 [facility] [id number] Noam Austin [id number] Noam Austin Notes Date Note Type Note Provider Name and Address Organization Details Recorded Time 10/11/2024 text/html 54-year-old male with history of otosclerosis status post right st[place] [address] Ward presents for reevaluation of his hearing. He reports gradual hearing loss in both years over the last year. Audiogram performed 06/25/2024 at [facility], which demonstrated mixed hearing loss in normal range. Patient endorses bilateral high-pitched constant tinnitus. Denies otalgia, otorrhea, or dizziness. Denies prior ear infections. No history of loud noise exposure. EH JAMIL MD [address] [facility],[place] [address], [place], [address], [place] - [facility] 10/11/2024 17:35:17 01/30/2025 text/html Patient with kno wn otosclerosis who underwent successful right stapes surgery with mi back in 2014. Patient underwent recent audiometric testing at [facility] back in June 2024 which showed borderline normal/mild conductive hearing loss bilaterally. Patient reports difficulty hearing in background noise such reduction such as restaurants and with certain types of voices at his office. No pain or discharge. No tinnitus. LINDY WARD MD [address] [facility] [address], [place], [address], [place] - [facility] 01/30/2025 13:41:39
== END 2025-03-27 16:49 | disposition home or self-care (01) ==
LOC: HO.HMCFM 15:48
PROVIDERS: PCP Internal Medicine; Visit Provider Internal Medicine
DX: F33.41 Major depressive disorder, recurrent, in partial remission (principal); R73.01 Impaired fasting glucose; Z13.228 Encounter for screening for other metabolic disorders; R19.00 Intra-abdominal and pelvic swelling, mass and lump, unspecified site

== ENCOUNTER → 2025-03-27 15:47 | Outpatient (BNVA) | payer BC, SELFPAY | PROVIDERS: PCP Internal Medicine; Visit Provider Internal Medicine | DX: F33.41 Major depressive disorder, recurrent, in partial remission (principal); R73.01 Impaired fasting glucose; R19.00 Intra-abdominal and pelvic swelling, mass and lump, unspecified site; I10 Essential (primary) hypertension; F41.9 Anxiety disorder, unspecified; Z79.899 Other long term (current) drug therapy; Z13.31 Encounter for screening for depression | CPT/HCPCS: 96127 ==

== ENCOUNTER 2025-05-16 08:32 | Outpatient (AMB) | payer BC, SELFPAY ==
--- NOTE | 2025-05-16 08:50 | MHC.OFFVIS ---
Vital Signs 05/16/25 08:57 Height 5 ft 11 in Weight 250 lb BMI 34.9 BP 116/70 Blood Pressure Location Rt brachial Position Sitting Pulse 63 Intake Visit Reasons: Left sided abdominal pain with 4cm mass/lipoma Intake Note: Patient referred by pcp Dr. Pride for evaluation of lipoma on left abdomen. Present for over 2yrs. Patient c/o: skin feels tight. Denies pain. 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 He has noticed this for about 3 years. He feels that this has been increasing in size. He thinks that this has been causing some pain on the left side of his abdomen . He denies GI complaints. He says he is active and plays pickleball He uses CPAP at night. [facility] Medical History (Updated 05/16/25 @ 09:11 by Larry Murphy MD) Reducible umbilical hernia Morbid obesity Seasonal allergies Surgical History Hx of cholecystectomy Hx of appendectomy Family History Maternal Grandmother Colon cancer Other FH: mental illness Substance use Social History Housing: House Patient Tobacco Use Status: Former Tobacco user Cigarette Packs Per Day: 1 Years Smoked: 15 service: No Current occupational status: employed Current occupation: Customer relations Current occupational exposures/hazards: No Hearing needs: Yes (hearing loss both ears) Vision needs: Yes (glasses) Review of Systems Const Denies chills and Denies fever(s) Card Denies chest pain, Denies dyspnea and Denies dyspnea on exertion Resp Details: Uses CPAP at night Denies cough, Denies dyspnea and Denies dyspnea on exertion GI Denies hematochezia and Denies change in bowel habits Denies hematuria and Denies difficulty urinating Musc Denies back pain and Denies limited range of motion Neuro Denies focal weakness and Denies convulsions Psych Denies depression and Denies mood swings Physical Exam Vital Signs: Last Vital Signs Pulse 63 05/16/25 08:57 BP 116/70 05/16/25 08:57 BMI result Body Mass Index 34.9 Const Other: Obese General: comfortable and no acute distress Orientation/consciousness: patient oriented x3 Neck Neck: Yes no lymphadenopathy Resp Auscultation: clear to auscultation bilaterally Cardio Rhythm: regular rhythm GI Other: Umbilical hernia, reducible, about 2.5 cm No lipoma felt on the left abdomen, no palpable masses elsewhere Palpation (GI): Soft to palpation, nontender and no guarding Neuro General: patient oriented x3 Assessment & Plan Assessment & Plan (1) Reducible umbilical hernia: Code(s): K42.9 - Umbilical hernia without obstruction or gangrene Category: Medical Plan: He has a reducible umbilical hernia as described above. I do not feel any other masses on the abdominal wall He wants to proceed with repair. I explained to him the technique of repair of the umbilical hernia with possible mesh. I reviewed the risks including but not limited to bleeding, infections, bowel injury, recurrence, as well as the benefits and alternatives. I explained to him what to expect postoperatively He says he understands and wants to proceed. Coding Level of Care Code New Pt Level 3 (38389) Diagnoses Reducible umbilical hernia K42.9
[2025-05-16 08:57] VITALS: BP 116/70; PULSE 63; BMI 34.9
== END 2025-05-16 09:07 | disposition home or self-care (01) ==
LOC: HO.HGS 08:33
PROVIDERS: PCP Internal Medicine; Visit Provider Surgery
DX: K42.9 Umbilical hernia without obstruction or gangrene (principal)
CPT/HCPCS: 99203

== ENCOUNTER 2025-05-22 15:51 | Outpatient (AMB) | payer OTHER, SELFPAY ==
--- NOTE | 2025-05-22 16:10 | A.OFFPC_ITS ---
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 Allergies ibuprofen (From Motrin) Allergy (Unknown, Verified 05/22/25 16:11) Unknown NSAIDS (Non-Steroidal Anti-Inflamma Allergy (Unknown, Verified 05/22/25 16:11) Unknown Tobacco use date assessed: 05/22/25 Dental Screening Dental Screen Date: 05/22/25 Did you have a dental visit in the last 12 months?: Yes Did you have a dental problem in the last 6 months where you did not have access to dental care?: No Was dental information given to patient?: Patient has dentist HPI HPI Comments History of Present Illness Details 54 year old male with a past medical his tory of hypertension, anxiety & depression, diverticulitis, tinnitus and MARINA presenting for annual exam BH: Anxiety, depression-currently on sertraline 100mg daily. He was having increased anxiety, finding it hard to concentrate, recall peoples names. Adderall addition has been very helpful. Lots of psychosocial stressors. He stopped etoh and finds this has helped overall. CV: on amlodipine 10mg daily. Family history of heart of disease. Denies chest pain. No increased shortness of breath MSK: neck pain, radiculopathy-stable GI: Patient reports continued left sided abdominal discomfort and a small umbilical hernia. He had a cat scan in 2022. He is going for hernia repair with Dr Murphy Colon cancer screening [facility] DR Elizalde. Td 2021 Shingrix 2023 ROS see HPI PHYSICAL EXAM: GENERAL: Alert and oriented x 3. NAD EYES: EOMI. Anicteric. HENT: Moist mucous membranes. No scleral icterus. No cervical lymphadenopathy. LUNGS: Clear to auscultation bilaterally. CARDIOVASCULAR: Regular rate and rhythm. No murmur. No JVD. ABDOMEN: Soft, non-tender +bs, small umbilical hernia ~4cm palpable abdominal mass/lipoma EXTREMITIES: No edema. Non-tender. SKIN: No rashes or lesions. Warm. NEUROLOGIC: No focal neurological deficits. CN II-XII grossly intact PSYCHIATRIC: Cooperative. Appropriate mood and affect [facility] Medical History Reducible umbilical hernia Morbid obesity Seasonal allergies Surgical History Hx of cholecystectomy Hx of appendectomy Family History Maternal Grandmother Colon cancer Other FH: mental illness Substance use Social History Housing: House Patient Tobacco Use Status: Former Tobacco user Cigarette Packs Per Day: 1 Years Smoked: 15 e-Cigarette/Vaping Use: Never Used service: No Current occupational status: employed Current occupation: Customer relations Current occupational exposures/hazards: No Cognitive needs: No Hearing needs: Yes (hearing loss both ears) Vision needs: Yes (glasses) Questionnaire Thrive Questionnaire Date Thrive assessed: 07/31/24 I am a: Patient What is your living situation today?: I have a steady place to live Within the past 12 months, did the food you bought not last and you didn't have the money to get more?: Never true Within the past 12 months, did you worry whether your food would run out before you got money to buy more?: Never true Do you have trouble paying for medicines?: No Do you have trouble getting transportation to medical appointments?: No Do you have trouble paying your heating and electricity bill?: No Do you have trouble taking care of your child, family member or friend?: No Do you have trouble with day-to-day activities such as bathing, preparing meals, shopping, managing finances, etc.?: No Are you currently unemployed and looking for a job?: No Are you interested in more education?: No Please select the resources that you would like help with: None Currently or been in a relationship where the following occur: No concerns reported THRIVE Score: 0 ANN-7 AMB Questionnaire ANN-7 Date ANN - 7 assessed: 08/07/24 Source: Developed by Drs. Kingsley Post, Sharda Plasencia, Michael Vivar and colleagues, with an educational shauna from [employer]. Physical exam (Primary Care) Vital Signs: Last Vital Signs Pulse 62 05/22/25 16:12 Resp 14 05/22/25 16:12 BP 135/82 05/22/25 16:12 Pulse Ox 97 05/22/25 16:12 Oxygen Delivery Method Room Air 05/22/25 16:12 BMI result Body Mass Index 34.7 Tobacco/Smoking Status: Tobacco use Status Tobacco use date assessed 05/22/25 05/22/25 16:14 Patient Tobacco Use Status Former Tobacco user 05/22/25 16:11 e-Cigarette/Vaping Use Never Used 05/22/25 16:14 Thrive Assessment: Date of Thrive Assessment Date Thrive assessed 07/31/24 05/22/25 16:11 Currently or been in a relationship where the following occur: No concerns reported Coding Level of Care Code Est Pt Prev Care 40-64y(69067) Diagnoses Physical exam Z00.00 Primary hypertension I10 Hypertension type: primary hypertension Recurrent major depressive disorder, in partial remission F33.41 Active/Remission status: in partial remission Major depression recurrence: recurrent Attention deficit disorder, unspecified type F98.8 Attention deficit type: unspecified type Assessment & Plan Assessment & Plan (1) Physical exam: Code(s): Z00.00 - Encounter for general adult medical examination without abnormal findings (2) Hypertension: Code(s): I10 - Essential (primary) hypertension Category: Medical Qualifiers: Hypertension type: primary hypertension Qualified Code(s): I10 - Essential (primary) hypertension (3) Major depression: Code(s): F32.9 - Major depressive disorder, single episode, unspecified Category: Medical Qualifiers: Active/Remission status: in partial remission Major depression recurrence: recurrent Qualified Code(s): F33.41 - Major depressive disorder, recurrent, in partial remission (4) ADD (attention deficit disorder): Code(s): F98.8 - Other specified behavioral and emotional disorders with onset usually occurring in childhood and adolescence Category: Medical Qualifiers: Attention deficit type: unspecified type Qualified Code(s): F98.8 - Other specified behavioral and emotional disorders with onset usually occurring in childhood and adolescence Plan 54 year old for CPE Past medical, surgical, social reviewed. HTN-controlled on current medication BH-depression improved control. concentration much improved colonoscopy utd Labs ordered Orders: Orders Hemoglobin A1c 05/22/25 F33.41 - Major depressive disorder, recurrent, in partial remission, F98.8 - Other specified behavioral and emotional disorders with onset usually occurring in childhood and adolescence, I10 - Essential (primary) hypertension, R73.01 - Impaired fasting glucose, Z00.00 - Encounter for general adult medical examination without abnormal findings Prostate Specific Antigen 05/22/25 F33.41 - Major depressive disorder, recurrent, in partial remission, F98.8 - Other specified behavioral and emotional disorders with onset usually occurring in childhood and adolescence, I10 - Essential (primary) hypertension, R73.01 - Impaired fasting glucose, Z00.00 - Encounter for general adult medical examination without abnormal findings Lipid Panel 05/22/25 F33.41 - Major depressive disorder, recurrent, in partial remission, F98.8 - Other specified behavioral and emotional disorders with onset usually occurring in childhood and adolescence, I10 - Essential (primary) hypertension, R73.01 - Impaired fasting glucose, Z00.00 - Encounter for general adult medical examination without abnormal findings Comprehensive Met. Panel 05/22/25 F33.41 - Major depressive disorder, recurrent, in partial remission, F98.8 - Other specified behavioral and emotional disorders with onset usually occurring in childhood and adolescence, I10 - Essential (primary) hypertension, R73.01 - Impaired fasting glucose, Z00.00 - Encounter for general adult medical examination without abnormal findings Complete Blood Count Auto Diff 05/22/25 F33.41 - Major depressive disorder, recurrent, in partial remission, F98.8 - Other specified behavioral and emotional disorders with onset usually occurring in childhood and adolescence, I10 - Essential (primary) hypertension, R73.01 - Impaired fasting glucose, Z00.00 - Encounter for general adult medical examination without abnormal findings
[2025-05-22 16:12] VITALS: BP 135/82; PULSE 62; RESP 14; O2SAT 97; BMI 34.7
== END 2025-05-22 16:42 | disposition home or self-care (01) ==
LOC: HO.HMCFM 15:52
PROVIDERS: PCP Internal Medicine; Visit Provider Internal Medicine
DX: Z00.00 Encounter for general adult medical examination without abnormal findings (principal); I10 Essential (primary) hypertension; F33.41 Major depressive disorder, recurrent, in partial remission; F98.8 Other specified behavioral and emotional disorders with onset usually occurring in childhood and adolescence

== ENCOUNTER 2025-06-27 08:29 | Outpatient (AMB) | payer BC, SELFPAY ==
[2025-06-27 08:34] VITALS: BP 128/84; PULSE 79; TEMP 37.1; O2SAT 98; BMI 34.6
--- NOTE | 2025-06-27 08:34 | MHC.OFFWIV ---
Intake Vital Signs 06/27/25 08:34 Height 5 ft 11 in Weight 248 lb BMI 34.6 BP 128/84 Blood Pressure Location Lt brachial Position Sitting Pulse 79 Pulse Source Pulse Oximeter Temp 98.8 F Temp Source Oral Pulse Oximetry (%) 98 Oxygen Delivery Method Room Air Intake Visit Reasons: EP-diarrhea, stomach issue Intake Note: Patient presents with diarrhea & stomach ache/pain x2 days Patient Tobacco Use Status: Former Tobacco user Allergies ibuprofen (From Motrin) Allergy (Unknown, Verified 06/27/25 08:37) Unknown NSAIDS (Non-Steroidal Anti-Inflamma Allergy (Unknown, Verified 06/27/25 08:37) Unknown Do you need a note to return to daycare/school/sports/work: No HPI HPI Comments History of Present Illness Details History of Present Illness - The patient is a 55-year-old male presenting with vomiting, diarrhea and dehydration. - Reports watery diarrhea since Wednesday night, accompanied by body aches and malaise. - Symptoms showed slight improvement but worsened again, with stomach discomfort and cramping. - Adheres to a BRAT diet and consumes Pedialyte for dehydration management. - History of Giardia infection, with suspicion of recurrence due to recent travel to [place]. - He just returned last week after his vacation. - No respiratory symptoms or vomiting reported. - Abstinent from alcohol for over 100 days. - He did not eat anything new. - He denies nausea, melena, hematochezia, CP, SOB, MILLER, dizziness, or weakness. - He has no sick contacts. Physical Exam General: Cooperative, healthy appearing, comfortable, no acute distress and well developed Orientation: Patient oriented x3 Respiratory: Normal respiratory effort and able to speak in complete sentences. Clear to auscultation bilaterally Cardiovascular: Regular rate and rhythm. Normal S1 and S2 GI: Normal to inspection. Soft to palpation and nontender. No TTP in all 4 quadrants. No guarding or rebound tenderness noted. Negative Rovsing ntoed. Negative [place]. Negative CVA tenderness noted. Skin: No rashes or lesions noted Patient was informed and verbally consented to the use of an ambient scribe for clinic note documentation during this visit. [facility] Medical History Reducible umbilical hernia Morbid obesity Seasonal allergies Surgical History Hx of cholecystectomy Hx of appendectomy Family History Maternal Grandmother Colon cancer Other FH: mental illness Substance use Social History Housing: House Patient Tobacco Use Status: Former Tobacco user Cigarette Packs Per Day: 1 Years Smoked: 15 e-Cigarette/Vaping Use: Never Used service: No Current occupational status: employed Current occupation: Customer relations Current occupational exposures/hazards: No Cognitive needs: No Hearing needs: Yes (hearing loss both ears) Vision needs: Yes (glasses) Review of Systems Const All systems reviewed & are unremarkable except as noted in HPI and below Physical Exam Vital Signs: Last Vital Signs Temp 98.8 F 06/27/25 08:34 Pulse 79 06/27/25 08:34 BP 128/84 06/27/25 08:34 Pulse Ox 98 06/27/25 08:34 Oxygen Delivery Method Room Air 06/27/25 08:34 BMI result Body Mass Index 34.6 Assessment & Plan Assessment & Plan (1) Nausea vomiting and diarrhea: Code(s): R11.2 - Nausea with vomiting, unspecified; R19.7 - Diarrhea, unspecified Plan Most likely gastroenteritis vs giardia vs viral illness plan - Recommended stool series to rule out Giardia infection. - will order a resp panel - Advised him to do a BRAT diet as tolerated - Advised to maintain hydration with Pedialyte and continue BRAT diet. - Advised against using anti-diarrheal medications to allow viral clearance. - will call with the results - follow up with PCP Orders: Orders GI Panel Today R11.2 - Nausea with vomiting, unspecified, R19.7 - Diarrhea, unspecified Resp Pathogen Panel - [facility] Today J06.9 - Acute upper respiratory infection, unspecified Coding Level of Care Code Est Pt Level 4 (42003) Diagnoses Nausea vomiting and diarrhea R11.2; R19.7
== END 2025-06-27 09:18 | disposition home or self-care (01) ==
PROVIDERS: PCP Internal Medicine; Visit Provider Physician Assistant Medical
DX: R11.2 Nausea with vomiting, unspecified (principal); R19.7 Diarrhea, unspecified

== ENCOUNTER 2025-06-27 09:30 | Outpatient (REF) | payer BC, SELFPAY ==
--- OUTSIDE RECORDS SUMMARY | 2025-06-27 12:02 | XMS_ITS | Data Portability ---
Author Organization [facility] Rene Padilla [facility], [facility] Address [address] [place] [address] Assessment No assessment recorded. Plan of Treatment Reminders Order Date Submit Date Provider Last Modified By Organization Details Last Modified Time Details Appointments None recorde d. Lab None recorde d. Referral physica l therapi st referra l - Forearm /Wrist/ Hand myofasc ial release Common Extenso r Stretch ing with Essentr ic Strengt hening Elbow/W rist ECCENTR ICS Pec & anterio r shoulde r release Postura l/body mechani cs Focus on head/sh oulder positio augustine Proprio ceptive /stabil ity exercis es Progres s to single arm and plyos 2024 [facility], [address] [place], [address], 5 15:59:00 Procedures None recorde d. Surgeries None recorde d. Imaging XR, elbow, 2 view - uc room 4 right elbow 2024 025 jayson [facility], [address] [employer] [facility], [facility] [address], [place], [address], 5 15:59:00 Medication Orders None recorde d. Patient TargetsNo targets recorded. Patient InstructionsNo instructions recorded. Reason for Referral Physical Therapist Referral for Right lateral elbow tendinopathy Forearm/Wrist/Hand myofascial releaseCommon Extensor Stretching with Essentric Strengthening Elbow/Wrist ECCENTRICS Pec & anterior shoulder release Postural/body mechanicsFocus on head/shoulder positioningProprioceptive/stability exercisesProgress to single arm and plyos Referring Physician: Vin Donohue, Orthopedic Surgery, Encounter Date: 05/14/2025 Results Created Date Observation Date Name Description Value Unit Range Abnormal Flag Note LastModifiedBy Organization Detail LastModifiedTime 05/14/20 25 05/14/2025 XR, elbow , 2 view http:/ [email or web address] ?Encry pted=s hAaTro YD8dLq bEUv6g %2BXZw aYqtaq 0bqfl% 2Fg9IQ a4ajBk vP9nXo QUaueC m3YtLR FvZlgJ JJ8mAn HZtai3 5h2675 AC0Klb H2CUKS mKiQtr MwF INTERFACE [facility] [address], [place], [address], 05/14/2025 09:25:14 05/14/20 25 05/14/2025 XR, elbow , 2 view http:/ [email or web address] ?Encry pted=s hAaTro YD8dLq bEUv6g %2BXZw aYqtaq 0bqfl% 2Fg9IQ a4ajBk vP9nXo QUaueC m3YtLR FvZlgJ JJ8mAn HZtai3 7g1410 AC0Klb H2CUKS mKiQtr MwF INTERFACE [facility] [address], [place], [address], 05/14/2025 09:25:16 Result Notes Documentation Provider Name and Address Organization Details Recorded Time Xr, Elbow, 2 View : [email or web address]? Encrypted=snQlEnyOM9sKtcN Uv6g%7ZTFuhQmtfc6thwj%2Fg 1HWt1awXdoS1zUvEUlugRw4Qz UTNzWxuVUO8uOzTZnsh36r201 7HU3UvcT9JOWZgXpHnzGmR Not Available [facility] 05/14/2025 09:25: 15 Xr, Elbow, 2 View : [email or web address] Encrypted=utKjNhnOS5nSaeJ Uv6g%4HFMxeAiviq3xqfs%2Fg 3IUs8ljSfgM5gCxFZtmkVk7Rh SCGuNgmMLC1nOmPQjzd64s384 5PW2NqmY8UWYGjRuWafJvA Not Available [facility] 05/14/2025 09:25: 16 Problems Name Problem SNOMED Code Status Onset Date Resolution Date Notes Provider Name and Address Organization Details Recorded Time Pain of elbow region 87619769 Active 2024 Vin Donohue PA-C [address], [place], [address], [facility] 5 09:17:50 Right lateral elbow tendinopath y 5724377535493 07 Active 2024 Vin Donohue PA-C [address], [place], [address], [facility] 5 09:52:53 Problem Notes None recorded. Procedures Surgical History Date Name Laterality Status Provider Name and Address Organization Details Recorded Time 5 Elbow Kenalog 1cc Injection, L/R completed Vin Donohue PA-C [address], [place], [address], [facility] 05/14/2025 10:29:52 Imaging Results None recorded. Procedure Notes None recorded. Medical Equipment None Reported. Allergies Allergen ID Allergen Name Allergen Category Reaction Reaction Severity Criticality Documentation Date Start Date Code Code System Note Provider Name and Address Organization Details Recorded Time 64283 ibuprofen medicatio n Not available Not available Not available 11/08/20232019 5640 RxNorm Not Available [facility] 4 14:47:24 05105 Non-stero idal anti-infl ammatory agent (substanc e) medicatio n Not available Not available Not available 11/08/20232021 23389 5008 SNOMED Not Available [facility] 4 14:47:24 Medications Name Sig Start Date Stop Date Status Note LastModified by Organization Details LastModified Time prednisone 20 mg tablet TAKE 1 TABLET BY MOUTH EVERY DAY active Not Available Not Available No t Available sertraline 100 mg tablet TAKE 1 TABLET BY MOUTH EVERY DAY active Not Available Not Available No t Available amlodipine 10 mg tablet TAKE 1 TABLET BY MOUTH ONCE DAILY active Not Available Not Available No t Available dextroamphetam ine-amphetamin e ER 10 mg 24hr capsule,extend release TAKE 1 CAPSULE BY MOUTH DAILY FOR 60 DAYS MAY PAY OUT OF POCKET active Not Available Not Available No t Available sertraline 50 mg tablet TAKE 1 TABLET BY MOUTH ONCE DAILY active Not Available Not Available No t Available amoxicillin 875 mg-potassium clavulanate 125 mg tablet TAKE 1 TABLET BY MOUTH TWICE A DAY FOR 7 DAYS active Not Available Not Available No t Available azithromycin 500 mg tablet TAKE 1 TABLET BY MOUTH EVERY DAY FOR 5 DAYS active Not Available Not Available No t Available Vitals Date Recorded Body height Body mass index (BMI) Body weight Provider Name and Address Organization Details Last Updated DateTime 05/14/2025 180.34 cm 34.4 kg/m2 029485.32 g Vin Donohue PA-C [address] [facility], [place], [address], [facility] 05/14/2025 09:16:01 Social History Question Answer Notes LastModified by Isomark Details LastModified Time Tobacco Smoking Status Former Smoker Vin Donohue PA-C [address], [place], [address], [facility] 05/14/2025 09:16:56 When Did You Quit Smoking? 16+yearssinc [place] [address] Information not available 05/14/2025 What Is Your Relationship Status? [place] [address] Information not available 05/14/2025 Sex: Unknown Functional Status Question Answer Note LastModified by Organizat AGELON ? Details LastModified Time Do you use any illicit or recreational drugs? No [facility] Information not available 05/14/2025 What is your level of alcohol consumption? [email or web address] Information not available 05/14/2025 Mental Status None recorded. Family History Nothing Reported. Medical History Condition Response Circulation Problems Y Arthritis Y Sleep Apnea Y Past Encounters Encounter ID Performer Location Encounter Start Date Encounter Closed Date Diagnosis/Indication Diagnosis SNOMED-CT Code Diagnosis ICD10 Code Diagnosis IMO Codes Diagnosis Note [id number] Vin Donohue PA-C [facility] [place] [address] [place] [address] 05/14/2025 08:32:42 05/23/2025 15:59:00 Pain of elbow region 79485484 M25.521 789601 Right late ral elbow tendinopathy 9328406074 26669 M77.11 [id number] Health Concerns Section Related Observation LastModified by Organization Detai ls LastModified Time None Recorded Concern Status LastModified by Organization Details LastModified Time None Recorded Advance Directives Directive None Recorded Payers Insurance Date Sequence Insurance Name Policy Number Policy Snell Covered Member ID Snell Member ID Guarantor Name 05/24/2025 1 [employer] ([place]) [id number] Noam Austin [id number] Noam Austin Notes Date Note Type Note Provider Name and Address Organization Details Recorded Time 05/14/2025 text/html I am seeing the patient today under the supervision of Dr. Montes who was available but who did not see the patient for today's Urgent Care walk in visit. HPI: Patient is a 54-year-old male comes the office today with chief complaint of right elbow pain. He has had approximately 3-week history of symptoms exacerbated with playing sports particularly pickleball as been problematic. Frustrating concern by this he has utilized a lqet-hjw-lkwowhc brace and now comes into the office for orthopedic evaluation. Past family, medical, social history and review of systems has been reviewed, updated and signed by me and is located in the patient s chart. PHYSICAL EXAMINATION: The patient is well appearing and in no apparent distress. Alert and oriented x3. Gait is symmetric. Right elbow exam shows full range of motion flexion extension pronation supination, intact triceps distal biceps, no laxity to stressing of UCL or posterior lateral rotation instability. Tenderness on the common extensor origin exacerbated with wrist extension. Peripheral, vascular, lymphatic examination, skin, neurological, coordination, reflexes, sensation are within normal limits. X-RAY REPORT: X-rays were ordered, obtained and independently reviewed today at [facility] 3 views of the right elbow failed to show evidence of acute fractures or bony abnormalities. IMPRESSION: Right elbow lateral epicondylitis PLAN: Treatment options reviewed natural pathophysiology of this diagnosis was reviewed with the patient. The importance of physical therapy counterforce brace stretching exercises eccentric strengthening being the critical component over the next 1 year for this to resolve. We discussed corticosteroid injection has very little role for long-term management but due to the acute nature of symptoms he asked if we could try it today. Vin Donohue PA-C [address] [facility] [address], [place], [address], [facility] [place] [facility] 05/14/2025 10:30:09
--- OUTSIDE RECORDS SUMMARY | 2025-06-27 12:03 | XMS_ITS | Data Portability ---
Author Organization [place] - [facility], All[facility] Address [address] [address] Care Team Providers Care Growth Media Mixer Mushroom Name Role Phone LIZANDRO MEDINA Primary Care Provider [phone] Assessment Encounter Date Assessment Date Assessment LastModified [...] appear intact and well-aerated. Audiogram 06/2024 at [facility] demonstrated mixed hearing loss in normal range. [...] with any additional perceived changes in hearing. [email or web address] Not available 01/30/2025 13:41:06 Plan of Treatment [...] Flag Note LastModifiedBy Organization Detail LastModifiedTime 01/31/20 audio gram No observ ation record ed. BARCODE Not Available 2024 15:45:56 Result Notes None recorded. Problems Name Problem SNOMED Code Status Onset Date Resolution Date Notes Provider Name and Address Organization Details Recorded Time Sensorine ural hearing loss of bilateral ears 577398871 Active 2014 Sensorine ural HL, bilateral Not Available [facility] 4 01:09:00 Unilatera l conductiv e hearing loss with unrestric tigist hearing on the contralat eral side Active 2014 Conductiv e hearing loss, unilatera l; Condition : improved Conducti ve hearing loss, unilatera l; Condition : improved Note: Date Diagnosed : 02/20/2015 4:17 PM (389.05) Not Available [facility] 4 02:50:14 Postopera tive follow-up visit Active 2014 Post op; Note: Date Diagnosed : 02/21/2015 7:29 AM (V67.00) Not Available [facility] 4 02:50:16 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 57444601 Active 2014 Otosclero sis involving oval window, nonoblite rative; Note: Changed from 387.9 to 387.0 ( 5 4:26 PM) , Date Diagnosed : 11/22/2014 11:08 AM (387.9) ; Start Date : 5 Otoscle rosis involving oval window, nonoblite rative, right ear; Note: Date Diagnosed : 5 9:07 AM (H80.01) [mapped from ICD9 code: 387.0] Not Available [facility] 4 02:50:11 Conductiv e hearing loss, bilateral 483504662 Active 2014 Conductiv e hearing loss, bilateral ; Note: Date Diagnosed : 11/22/2014 11:08 AM (389.06) ; Start Date : 5 Conduct reinier hearing loss, bilateral ; Note: Date Diagnosed : 5 9:15 AM (H90.0) [mapped from ICD9 code: 389.06] Not Available [facility] 4 02:50:14 Bilateral tinnitus 14428915800 02 Active [address] HAHN PA-C [address], [place], [address] , [facility] - [facility] 5 10:33:58 Mixed conductiv e and sensorine ural hearing loss, bilateral 481157108 Active 2024 TILA HAHN PA-C [address], [place], [address] , [place] - [facility] 5 10:34:48 Impacted cerumen in right ear 60358401201 88271 Active 2024 TILA HAHN PA-C [address] [facility], [place], [address] , [place] - [facility] 5 10:35:17 Mixed conductiv e and sensorine ural hearing loss, bilateral 714291935 Active [address] [address], [place], [address] , [facility] - [facility] 13:10:37 Otosclero sis 27744131 Active 2024 LINDY WARD MD [address] [address], [place], [address] , [facility] - [facility] 13:40:12 Problem Notes None recorded. Procedures Surgical History Date Name Laterality Status Provider Name and Address Organization Details Recorded Time 5 Comp Audio with Tymps & Reflexes - 89138 & 98271 completed TAMEKA PORTILLO [address] [facility], [place], [address], [facility] 01/30/2025 13:24:14 Cerumen removal without microscope right completed TILA HAHN PA-C [address] [place] [address], [address], [facility] 10/11/2024 10:29:38 Imaging Results None recorded. Procedure Notes None recorded. Medical Equipment None Reported. Allergies Allergen ID Allergen Name Allergen Category Reaction Reaction Severity Criticality Documentation Date Start Date Code Code System Note Provider Name and Address Organization Details Recorded Time 195808 Non-stero idal anti-infl ammatory agent (substanc e) medicatio n anaphylax is rash moderate moderate Not available 01/30/2025 19958 5008 SNOMED Judy romero [facility] 12:50:36 888673 ragweed pollen environme nt Not available Not available Not available 01/30/2025 Judy romero [facility] 12:50:36 Medications Name Sig Start Date Stop [...] eye drops 10/11 completed Medicati on ID: [id number] Du ration Value: 10 Prescri bed By [...] completed Not Available Not Available Not Available [place] 5 mg-325 mg tablet 1-2 tablet by mouth 10/11 completed Medicati on ID: [id number] Du ration Value: 7 Prescri bed By Name: Sandra Gifford nd Name: Storm Cassidy nd Method: E-Prescr ibed [...] Updated DateTime 10/11/2024 180.34 cm 36.3 kg/m2 095881.02 g Sherlyn Krishna [place] - [facility] 10/11/2024 09:51:51 Date Recorded Body height Body weight Provider Name and Address Organization Details Last Updated DateTime 01/30/2025 180.34 cm 857060.02 art Hart [place] - [facility] 01/30/2025 12:50:22 Social History Question Answer Notes LastModified by Organizat ion Details LastModified Time Tobacco Smoking Status Former Smoker Judy romero [place] - [facility] 01/30/2025 12:51:18 How Many Years Have You Consumed Alcohol? 30 [email or web address] Information not available 01/30/2025 What Type Of Expanded Duty Dental Assistant Do You Use? None [email or web address] Information not available 01/30/2025 How Many Alcoholic Drinks Do You Consume Per Day On Average? 2 Information not available 01/30/2025 When Did You Quit Smoking? 16+yearssinc elastcigaret te [email or web address] Information not available 01/30/2025 What Is Your Current Pack Years? 10packyears [email or web address] Information not available 01/30/2025 Do You Have Any Pets? Yes [email or web address] Information not available 01/30/2025 At What Age Did You Start Smoking Tobacco? 12 Information not available 01/30/2025 Are You Passively Exposed To Smoke? No [email or web address] Information not available 01/30/2025 Are There Any Smokers In Your House? No [email or web address] Information not available 01/30/2025 How Much Tobacco Do You Smoke? No [email or web address] Information not available 01/30/2025 How Many Years Have You Smoked Tobacco? 19 [email or web address] Information not available 01/30/2025 Sex: Unknown Functional Status Question Answer Note LastModified by Organization Details LastModified Time How many times per week do you consume alcohol? 3-4 times per week [email or web address] Information not available 01/30/2025 Do you use any illicit or recreational drugs? No Information not available 01/30/2025 Do you or have you ever used any other forms of tobacco or nicotine? No [email or web address] Information not available 01/30/2025 What is your level of alcohol consumption? 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 noExposureToExcessiveNoise [email or web address] Infor mation not available 01/30/2025 Mental Status None recorded. Family History Nothing Reported. Medical History Condition Response Allergies/Hayfever Y Heart Problems N Anxiety Y Tonsil Infections N Emphysema N Migraines N Thyroid Problems N Developmental Delay N COPD N Depression Y Glaucoma N Nasal or Sinus Problems N Anemia N Immune System Disorder N Anesthesia Complications N Heart Attack ([place]) N Other Skin Condition N Diabetes N [...] ICD10 Code Diagnosis IMO Codes Diagnosis Note [id number] TILA HAHN PA-C [facility] [address] [address] 10/11/2024 09:19:42 10/11/2024 10:20:28 Bilateral tinnitus 0712984531 102 H93.13 Today we discussed the pathophysi [...] cond uctive and sensorineural hearing loss, bilateral 371100650 H90.6 Impacted c erumen in right ear 5807238616 523831 H61.21 [id number] LINDY WARD MD [facility] [address] [address] 01/30/2025 12:40:06 01/30/2025 13:40:26 Mixed conductive and sensorineural hearing loss, bilateral 834229138 H90.6 [id number] Audiologic al evaluation results: Mild to moderate mixed hearing loss with excellent word recognitio n, bilaterall y. Tympanomet ry:Right Ear:Type CLeft Ear:Type As Acoustic Reflexes:R ight:absen t ipsi and contraLeft :Absent ipsi and contra Otosclerosis 35740173 H8 0.93 5006696 Health Concerns Section Related Observation LastModified by Organization Detai ls LastModified Time None Recorded Concern Status LastModified by Organization Details LastModified Time None Recorded Advance Directives Directive None Recorded Payers Insurance Date Sequence Insurance Name Policy Number Policy Snell Covered Member ID Snell Member ID Guarantor Name 01/30/2025 2 [employer] [id number] Noam Austin [id number] Noam Austin 01/30/2025 1 [facility] [id number] Noam Austin [id number] Noam Austin Notes Date Note Type Note Provider Name and Address Organization Details Recorded Time 10/11/2024 text/html ROS as noted in the HPI 54-year-old male with history of otosclerosis status post right st[place] [address] Ward presents for reevaluation of his hearing. He reports gradual hearing loss in both years over the last year. Audiogram performed 06/25/2024 at [facility], which demonstrated mixed hearing loss in normal range. Patient endorses bilateral high-pitched constant tinnitus. Denies otalgia, otorrhea, or dizziness. Denies prior ear infections. No history of loud noise exposure. EH JAMIL MD [address] [place] [address],[address], [address], [facility] 10/11/2024 17:35:17 01/30/2025 text/html Patient with known otosclerosis who underwent successful right stapes surgery with il back in 2014. Patient underwent recent audiometric testing at [facility] back in June 2024 which showed borderline normal/mild conductive hearing loss bilaterally. Patient reports difficulty hearing in background noise such reduction such as restaurants and with certain types of voices at his office. No pain or discharge. No tinnitus. LINDY WARD MD [address] [place] [address],[address], [address], [facility] 01/30/2025 13:41:39
[2025-06-28 06:44] LABS: Chlamydia pneumoniae PCR Not Detected (Not Detect.); Coronavirus 229E PCR Not Detected (Not Detect.); Coronavirus HKU1 PCR Not Detected (Not Detect.); Coronavirus NL63 PCR Not Detected (Not Detect.); Coronavirus OC43 PCR Not Detected (Not Detect.); RSV PCR Not Detected (Not Detect.); Rhino/Enterovirus PCR Not Detected (Not Detect.)
[2025-06-28 06:50] LABS: Influenza A H1 PCR Not Detected (Not Detect.); Influenza A H1-2009 PCR Not Detected (Not Detect.); Influenza A H3 PCR Not Detected (Not Detect.); SARS-CoV-2 PCR Not Detected (Not Detect.)
[2025-06-28 08:40] LABS: E. coli EAEC Not Detected (Not Detect.); E. coli EPEC Detected (Not Detect.); E. coli ETEC Not Detected (Not Detect.); E. coli STEC Not Detected (Not Detect.); Shigella sp./EIEC Not Detected (Not Detect.)
== END 2025-06-27 09:31 | disposition home or self-care (01) ==
LOC: HO.HMGCLNP 09:30
PROVIDERS: PCP Internal Medicine; Visit Provider Physician Assistant Medical
DX: J06.9 Acute upper respiratory infection, unspecified (principal); R11.2 Nausea with vomiting, unspecified; R19.7 Diarrhea, unspecified
CPT/HCPCS: 87507; 87633

== ENCOUNTER 2025-08-07 09:24 | Day surgery (SDC) | payer BC, SELFPAY ==
--- OUTSIDE RECORDS SUMMARY | 2025-07-19 18:12 | XMS_ITS | Continuity of Care Document ---
Author Organization [place] - [facility], [place] Address [address] [place] [address] Assessment No assessment recorded. Plan of Treatment [...] to single arm and plyos 2024 025 [facility] [place], [address] [facility], [place], [address], 5 15:59:00 Procedures None recorde d. Surgeries None recorde d. Imaging XR, elbow, 2 view - uc room 4 right elbow 2024 025 merle [facility], [address], [facility] [address], [place], [address], 5 15:59:00 Medication Orders None recorde d. [...] Abnormal Flag Note LastModifiedBy Organization Detail LastModifiedTime 05/14/2005/14/2025 XR, elbow , 2 view [email or web address]:/ [email or web address] ?Encry pted=s hAaTro YD8dLq bEUv6g %2BXZw aYqtaq 0bqfl% 2Fg9IQ a4ajBk vP9nXo QUaueC m3YtLR FvZlgJ JJ8mAn HZtai3 6i1287 AC0Klb H2CUKS mKiQtr MwF INTERFACE [facility] [address], [place], [address], 05/14/2025 09:25:14 05/14/20 25 05/14/2025 XR, elbow , 2 view http:/ [email or web address] ?Encry pted=s hAaTro YD8dLq bEUv6g %2BXZw aYqtaq 0bqfl% 2Fg9IQ a4ajBk vP9nXo QUaueC m3YtLR FvZlgJ JJ8mAn HZtai3 2s0786 AC0Klb H2CUKS mKiQtr MwF INTERFACE [facility] [address] [facility] [address], [place], [address], 05/14/2025 09:25:16 Result Notes Documentation Provider Name and Address Organization Details Recorded Time Xr, Elbow, 2 View : [email or web address]? Encrypted=yeZlVkzNM8sUfhF Uv6g%9RQDxrMhacw3nkig%2Fg 0AMk3vwVhmM3wVlJAdmkEb8Ck RIJpCckWCX0qSeWDurv09i020 1QO2NysU1ZPEMrEuCopDxN Not Available [facility] 05/14/2025 09:25: 15 Xr, Elbow, 2 View : [email or web address]? Encrypted=tmPqSxgOH3xXwvP Uv6g%5AKSpwDimue9elcu%2Fg 2BXb0itNjpZ6yRiUIksfLi1Ik GREdRgwUYW9qInOPqar34h408 9HM6KdvJ6JFTHgQzIytZxF Not Available [facility] 05/14/2025 09:25: 16 Problems Name Problem SNOMED Code Status Onset Date Resolution Date Notes Provider Name and Address Organization Details Recorded Time Pain of elbow region 26408597 Active 2024 Vin Donohue PA-C [address], [facility] [place], [address], [facility] 5 09:17:50 Right lateral elbow tendinopath y 6028930167973 07 Active 2024 Vin Donohue PA-C [address], [facility] [place], [address], [facility] 5 09:52:53 Problem Notes None recorded. Procedures Surgical History Date Name Laterality Status Provider Name and Address Organization Details Recorded Time 5 Elbow Kenalog 1cc Injection, L/R completed Vin Donohue PA-C [address], [place], [address], [facility] 05/14/2025 10:29:52 Imaging Results None recorded. Procedure Notes None recorded. Medical Equipment None Reported. Allergies Allergen ID Allergen Name Allergen Category Reaction Reaction Severity Criticality Documentation Date Start Date Code Code System Note Provider Name and Address Organization Details Recorded Time 71491 ibuprofen medicatio n Not available Not available Not available 11/08/20232019 5640 RxNorm Not Available [facility] 4 14:47:24 03519 Non-stero idal anti-infl ammatory agent (substanc e) medicatio n Not available Not available Not available 11/08/20232021 39594 5008 SNOMED Not Available [facility] 4 14:47:24 Medications Name Sig Start [...] Updated DateTime 05/14/2025 180.34 cm 34.4 kg/m2 472965.32 g Vin Donohue PA-C [address], [place], [address], [facility] 05/14/2025 09:16:01 Social History Question Answer Notes LastModified by Organizat ion Details LastModified Time Tobacco Smoking Status Former Smoker Vin Donohue PA-C [address], [place], [address], [facility] 05/14/2025 09:16:56 When Did You Quit Smoking? 16+yearssinc elastcigaret te [facility] Information not available 05/14/2025 What Is Your Relationship Status? [facility] Information not available 05/14/2025 Sex: Unknown Functional Status Question Answer Note LastModified by Organizat ion Details LastModified Time Do you use any illicit or recreational drugs? No [email or web address] Information not available 05/14/2025 What is your level of alcohol consumption? None [email or web address] Information not available 05/14/2025 Mental Status None recorded. Family History Nothing Reported. Medical History Condition Response Circulation Problems Y Arthritis Y Sleep Apnea Y Past Encounters Encounter ID Performer Location Encounter Start Date Encounter Closed Date Diagnosis/Indication Diagnosis SNOMED-CT Code Diagnosis ICD10 Code Diagnosis IMO Codes Diagnosis Note [id number] Vin Donohue PA-C [place] [facility] [place] [address] [place] [address] 05/14/2025 08:32:42 05/23/2025 15:59:00 Pain of elbow region 91434617 M25.521 135674 Right late ral elbow tendinopathy 8102026900 52364 M77.11 8604335 Health Concerns Section Related Observation LastModified by Organization Detai ls LastModified Time None Recorded Concern Status LastModified by Organization Details LastModified Time None Recorded Payers Encounter Date Sequence Insurance Name Policy Number Policy Snell Covered Member ID Snell Member ID Guarantor Name 05/14/2025 1 [employer]ER[employer]SAUL (PPO) [id number] Noam Austin [id number] Noam Austin Notes Date Note Type [...] concern by this he has utilized a niim-lfs-fcoyjdc brace and now comes into the office [...] ordered, obtained and independently reviewed today at [facility] 3 views of the right elbow failed [...] try it today. Vin Donohue PA-C [address] [facility] [address], [place], [address], [facility] [place] [facility] 05/14/2025 10:30:09
--- OUTSIDE RECORDS SUMMARY | 2025-07-19 18:12 | XMS_ITS | Data Portability ---
Author Organization [place] - [facility] [place], Allergy Address [address] [address] Care Team Providers Care Leather Stitcher Name Role Phone LIZANDRO MEDINA Primary Care Provider Assessment Encounter Date Assessment Date Assessment LastModified [...] appear intact and well-aerated. Audiogram 06/2024 at [facility] demonstrated mixed hearing loss in normal [...] with any additional perceived changes in hearing. [email or web address] Not available 01/30/2025 13:41:06 Plan of Treatment [...] Sensorine ural hearing loss of bilateral ears 288263709 Active 2014 Sensorine ural HL, bilateral Not Available [facility] 4 01:09:00 Unilatera l conductiv e hearing loss with unrestric tigist hearing on the contralat eral side Active 2014 Conductiv e hearing loss, unilatera l; Condition : improved Conducti ve hearing loss, unilatera l; Condition : improved Note: Date Diagnosed : 02/20/2015 4:17 PM (389.05) Not Available [facility] 4 02:50:14 Postopera tive follow-up visit Active 2014 Post op; Note: Date Diagnosed : 02/21/2015 7:29 AM (V67.00) Not Available [facility] 4 02:50:16 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 57719495 Active 2014 Otosclero sis involving oval window, nonoblite rative; Note: Changed from 387.9 to 387.0 ( 5 4:26 PM) , Date Diagnosed : 11/22/2014 11:08 AM (387.9) ; Start Date : 5 Otoscle rosis involving oval window, nonoblite rative, right ear; Note: Date Diagnosed : 5 9:07 AM (H80.01) [mapped from ICD9 code: 387.0] Not Available [facility] 4 02:50:11 Conductiv e hearing loss, bilateral 614912497 Active 2014 Conductiv e hearing loss, bilateral ; Note: Date Diagnosed : 11/22/2014 11:08 AM (389.06) ; Start Date : 5 Conduct reinier hearing loss, bilateral ; Note: Date Diagnosed : 5 9:15 AM (H90.0) [mapped from ICD9 code: 389.06] Not Available [facility] 4 02:50:14 Bilateral tinnitus 77702605759 02 Active 2024 TILA HAHN PA-C [address], [place], [address] , [facility] - [facility] [place] 5 10:33:58 Mixed conductiv e and sensorine ural hearing loss, bilateral 832676996 Active 2024 TILA HAHN PA-C [address], [place], [address] , [place] - [facility] 5 10:34:48 Impacted cerumen in right ear 99074388832 11926 Active 2024 TILA HAHN PA-C [address] [facility], [place], [address] , [place] - [facility] 5 10:35:17 Mixed conductiv e and sensorine ural hearing loss, bilateral 236283432 Active 2024 TAMEKA PORTILLO [address],[place] [address], [place], [address] , [facility] - [facility] [place] 13:10:37 Otosclero sis 65548146 Active 2024 LINDY WARD MD [address] [address], [place], [address] , [facility] - [facility] [place] 13:40:12 Problem Notes None recorded. Procedures Surgical History Date Name Laterality Status Provider Name and Address Organization Details Recorded Time 5 Comp Audio with Tymps & Reflexes - 25381 & 76076 completed TAMEKA PORTILLO [address] [facility], [place], [address], [facility] 01/30/2025 13:24:14 Cerumen removal without microscope right completed TILA HAHN PA-C [address] [place] [address], [address], [facility] 10/11/2024 10:29:38 Imaging Results None recorded. Procedure Notes None recorded. Medical Equipment None Reported. Allergies Allergen ID Allergen Name Allergen Category Reaction Reaction Severity Criticality Documentation Date Start Date Code Code System Note Provider Name and Address Organization Details Recorded Time 615660 Non-stero idal anti-infl ammatory agent (substanc e) medicatio n anaphylax is rash moderate moderate Not available 01/30/2025 93955 5008 SNOMED Judy romero [facility] 12:50:36 797995 ragweed pollen environme nt Not available Not available Not available 01/30/2025 Judy romero [facility] 12:50:36 Medications Name Sig Start Date [...] eye drops 10/11 completed Medicati on ID: [id number] Du ration Value: 10 Prescri bed By [...] completed Not Available Not Available Not Available [place] 5 mg-325 mg tablet 1-2 tablet by mouth 10/11 completed Medicati on ID: [id number] Du ration Value: 7 Prescri bed By [...] Updated DateTime 10/11/2024 180.34 cm 36.3 kg/m2 562513.02 g Sherlyn Krishna [place] - [facility] 10/11/2024 09:51:51 Date Recorded Body height Body weight Provider Name and Address Organization Details Last Updated DateTime 01/30/2025 180.34 cm 981122.02 art Hart [place] - [facility] 01/30/2025 12:50:22 Social History Question Answer Notes LastModified by Organizat ion Details LastModified Time Tobacco Smoking Status Former Smoker Judy romero [place] - [facility] 01/30/2025 12:51:18 How Many Years Have You Consumed Alcohol? 30 [email or web address] Information not available 01/30/2025 What Type Of Boiler Engineer Do You Use? None [email or web address] Information not available 01/30/2025 How Many Alcoholic Drinks Do You Consume Per Day On Average? 2 [email or web address] Information not available 01/30/2025 When Did You Quit Smoking? 16+yearssinc elastcigaret te [email or web address] Information not available 01/30/2025 What Is Your Current Pack Years? 10packyears [email or web address] Information not available 01/30/2025 Do You Have Any Pets? Yes [email or web address] Information not available 01/30/2025 At What Age Did You Start Smoking Tobacco? 12 [email or web address] Information not available 01/30/2025 Are You Passively Exposed To Smoke? No [email or web address] Information not available 01/30/2025 Are There Any Smokers In Your House? No [email or web address] Information not available 01/30/2025 How Much Tobacco Do You Smoke? No [email or web address] Information not available 01/30/2025 How Many Years Have You Smoked Tobacco? 19 [email or web address] Information not available 01/30/2025 Sex: Unknown Functional Status Question Answer Note LastModified by Organization Details LastModified Time How many times per week do you consume alcohol? 3-4 times per week [email or web address] Information not available 01/30/2025 Do you use any illicit or recreational drugs? No [email or web address] Information not available 01/30/2025 Do you or have you ever used any other forms of tobacco or nicotine? No [email or web address] Information not available 01/30/2025 What is your level of alcohol consumption? 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 noExposureToExcessiveNoise Infor mation not available 01/30/2025 Mental Status None recorded. Family History Nothing Reported. Medical History Condition Response Allergies/Hayfever Y Heart Problems N Anxiety Y Tonsil Infections N Emphysema N Migraines N Thyroid Problems N COPD N Depression Y Developmental Delay N Glaucoma N Nasal or Sinus Problems N Anemia N Immune System Disorder N Anesthesia Complications N Heart Attack (ME) N Other Skin Condition N Diabetes N Rhinitis N Bleeding Disorder N Food Allergy N Hearing Loss Y Arthritis N Hyperlipidemia N Cancer N Stroke N Dementia N Nasal polyps Y Asthma N Sleep Disorder Y High Cholesterol N GERD/Reflux N Liver Disease N Headaches N Fibromyalgia N Hypertension Y Speech Delay N Kidney Disease N Past Encounters Encounter ID Performer Location Encounter Start Date Encounter Closed Date Diagnosis/Indication Diagnosis SNOMED-CT Code Diagnosis ICD10 Code Diagnosis IMO Codes Diagnosis Note [id number] TILA HAHN PA-C [facility] [address] [address] 10/11/2024 09:19:42 10/11/2024 10:20:28 Bilateral tinnitus 2302437038 102 H93.13 Today we discussed the pathophysi [...] cond uctive and sensorineural hearing loss, bilateral 107130952 H90.6 Impacted c erumen in right ear 7750439579 975860 H61.21 [id number] LINDY WARD MD [facility] [address] [address] 01/30/2025 12:40:06 01/30/2025 13:40:26 Mixed conductive and sensorineural hearing loss, bilateral 857561918 H90.6 6352998 Audiologic al evaluation results: Mild to moderate mixed hearing loss with excellent word recognitio n, bilaterall y. Tympanomet ry:Right Ear:Type CLeft Ear:Type As Acoustic Reflexes:R ight:absen t ipsi and contraLeft :Absent ipsi and contra Otosclerosis 52266361 H8 0.93 2065292 Health Concerns Section Related Observation LastModified by Organization Detai ls LastModified Time None Recorded Concern Status LastModified by Organization Details LastModified Time None Recorded Advance Directives Directive None Recorded Payers Insurance Date Sequence Insurance Name Policy Number Policy Snell Covered Member ID Snell Member ID Guarantor Name 01/30/2025 2 [employer] [id number] Noam Austin [id number] Noam Austin 01/30/2025 1 [facility] [id number] Noam Austin [id number] Noam Austin Notes Date Note Type Note Provider Name and Address Organization Details Recorded Time 10/11/2024 text/html ROS as noted in the HPI 54-year-old male with history of otosclerosis status post right staped[place] [address] Ward presents for reevaluation of his hearing. He reports gradual hearing loss in both years over the last year. Audiogram performed 06/25/2024 at [facility], which demonstrated mixed hearing loss in normal range. Patient endorses bilateral high-pitched constant tinnitus. Denies otalgia, otorrhea, or dizziness. Denies prior ear infections. No history of loud noise exposure. EH JAMIL MD [address] [place] [address],[address], [address], [facility] 10/11/2024 17:35:17 01/30/2025 text/html Patient with known otosclerosis who underwent successful right stapes surgery with ut back in 2014. Patient underwent recent audiometric testing at [facility] back in June 2024 which showed borderline normal/mild conductive hearing loss bilaterally. Patient reports difficulty hearing in background noise such reduction such as restaurants and with certain types of voices at his office. No pain or discharge. No tinnitus. LINDY WARD MD [address] [place] [address],[address], [address], [facility] 01/30/2025 13:41:39
--- OUTSIDE RECORDS SUMMARY | 2025-07-19 18:12 | XMS_ITS | Data Portability ---
Author Organization [facility] Rene Padilla [facility], [facility] Address [address] [place] [address] Assessment No assessment recorded. Plan of Treatment [...] to single arm and plyos 2024 025 [facility] [place], [address] [place], [address], 5 15:59:00 Procedures None recorde d. Surgeries None recorde d. Imaging XR, elbow, 2 view - uc room 4 right elbow 2024 025 jayson [facility], [address] [facility] [address], [facility] [address], [address], 5 15:59:00 Medication Orders None recorde d. [...] a4ajBk vP9nXo QUaueC m3YtLR FvZlgJ JJ8mAn HZtai3 0m3997 AC0Klb H2CUKS mKiQtr MwF INTERFACE [facility] [address] [facility] [address], [place], [address], 05/14/2025 09:25:14 05/14/20 25 05/14/2025 XR, elbow , 2 view [email or web address]:/ [email or web address] ?Encry pted=s hAaTro YD8dLq bEUv6g %2BXZw aYqtaq 0bqfl% 2Fg9IQ a4ajBk vP9nXo QUaueC m3YtLR FvZlgJ JJ8mAn HZtai3 6i6615 AC0Klb H2CUKS mKiQtr MwF INTERFACE [facility] [address] [facility] [address], [place], [address], 05/14/2025 09:25:16 Result Notes Documentation Provider Name and Address Organization Details Recorded Time Xr, Elbow, 2 View : [email or web address] Encrypted=nuDfIpjEG3vHuxI Uv6g%6MQHjnTrlgt7qijv%2Fg 5MQm5oyOeuE7xJkUXneaUu7Ze FWOzMvpWKB0kFxWZtbt70l241 3CP5LmfQ1FBCRrWgUpfZbY Not Available [facility] 05/14/2025 09:25: 15 Xr, Elbow, 2 View : [email or web address] Encrypted=egUxFzzMR3oAdmF Uv6g%7ANYksMagwz5wifb%2Fg 1HTh6qmYjyA2pMlTGtziUi1Jy QSDeEakTOP4kJrSZgfe46g792 0VN3GqvZ7CIMHeAoAzbKqC Not Available [facility] 05/14/2025 09:25: 16 Problems Name Problem SNOMED Code Status Onset Date Resolution Date Notes Provider Name and Address Organization Details Recorded Time Pain of elbow region 63693000 Active 2024 Vin Donohue PA-C [address], [place], [address], [facility] 5 09:17:50 Right lateral elbow tendinopath y 1929937367544 07 Active 2024 Vin Donohue PA-C [address], [place], [address], [facility] 5 09:52:53 Problem Notes None recorded. Procedures Surgical History Date Name Laterality Status Provider Name and Address Organization Details Recorded Time 5 Elbow Kenalog 1cc Injection, L/R completed Vin Donohue PA-C [address], [place], [address], [facility] 05/14/2025 10:29:52 Imaging Results None recorded. Procedure Notes None recorded. Medical Equipment None Reported. Allergies Allergen ID Allergen Name Allergen Category Reaction Reaction Severity Criticality Documentation Date Start Date Code Code System Note Provider Name and Address Organization Details Recorded Time 95384 ibuprofen medicatio n Not available Not available Not available 11/08/20232019 5640 RxNorm Not Available [facility] 4 14:47:24 78184 Non-stero idal anti-infl ammatory agent (substanc e) medicatio n Not available Not available Not available 11/08/20232021 96499 5008 SNOMED Not Available [facility] 4 14:47:24 Medications Name Sig Start [...] Updated DateTime 05/14/2025 180.34 cm 34.4 kg/m2 676270.32 g Vin Donohue PA-C [address] [facility], [place], [address], [facility] 05/14/2025 09:16:01 Social History Question Answer Notes LastModified by [employer] Details LastModified Time Tobacco Smoking Status Former Smoker Vin Donohue PA-C [address], [place], [address], [facility] 05/14/2025 09:16:56 When Did You Quit Smoking? 16+yearssinc elastcigaret te [place] [address] Information not available 05/14/2025 What Is Your Relationship Status? [place] [address] Information not available 05/14/2025 Sex: Unknown Functional Status Question Answer Note LastModified by Organizat [employer] Details LastModified Time Do you use any illicit or recreational drugs? No [facility] Information not available 05/14/2025 What is your level of alcohol consumption? None mcaformerly [place] Information not available 05/14/2025 Mental Status None recorded. Family History Nothing Reported. Medical History Condition Response Arthritis Y Circulation Problems Y Sleep Apnea Y Past Encounters Encounter ID Performer Location Encounter Start Date Encounter Closed Date Diagnosis/Indication Diagnosis SNOMED-CT Code Diagnosis ICD10 Code Diagnosis IMO Codes Diagnosis Note [id number] Vin Donohue PA-C [place] [facility] [place] [address] [place] [address] 05/14/2025 08:32:42 05/23/2025 15:59:00 Pain of elbow region 55553114 M25.521 241509 Right late ral elbow tendinopathy 2692661082 81704 M77.11 9714390 Health Concerns Section Related Observation LastModified by Organization Detai ls LastModified Time None Recorded Concern Status LastModified by Organization Details LastModified Time None Recorded Advance Directives Directive None Recorded Payers Insurance Date Sequence Insurance Name Policy Number Policy Snell Covered Member ID Snell Member ID Guarantor Name 05/24/2025 1 [employer]SAUL (PPO) [id number] Noam Austin [id number] Noam Austin Notes Date Note Type [...] concern by this he has utilized a cxuz-wbt-jwpixjk brace and now comes into the office [...] ordered, obtained and independently reviewed today at [facility] 3 views of the right elbow [...] try it today. Vin Donohue PA-C [address] [facility] [address], [place], [address], [facility] [place] [facility] 05/14/2025 10:30:09
--- NOTE | 2025-08-01 10:36 | HO.ANESPROP2 ---
Documented by User: Bernadine Chin NP 08/01/25 10:37 HPI - Anesthesia Eval Consult details Narrative: 55yo M for Repair Hernia Umbilical Reducible with possible mesh PMFSH Active Problems Active Problems: All Active Problems Reducible umbilical hernia (Acute) Morbid obesity (Acute) ADD (attention deficit disorder) (Acute) Abdominal mass (Acute) Acute bacterial sinusitis (Acute) Screening for prostate cancer (Acute) Impaired fasting glucose (Acute) Screening for metabolic disorder (Acute) Screening, deficiency anemia, iron (Acute) Cervical radiculitis (Acute) Major depression (Acute) Hypertension (Acute) Past Medical History Medical History MARINA (obstructive sleep apnea) Depression HTN (hypertension) Impaired fasting glucose ADD (attention deficit disorder) Reducible umbilical hernia Morbid obesity Seasonal allergies Family History Family History Maternal Grandmother Colon cancer Other FH: mental illness Substance use Surgical History Surgical History Hx of cholecystectomy Hx of appendectomy Social History Social History Housing: House Comment: correct count Patient Tobacco Use Status: Former Tobacco user Cigarette Packs Per Day: 1 Years Smoked: 15 e-Cigarette/Vaping Use: Never Used Use of substances other than those prescribed or required for medical reasons: No Advance Directives: No Advance Directives Information Provided: Yes service: No Current occupational status: employed Current occupation: Customer relations Current occupational exposures/hazards: No Cognitive needs: No Hearing needs: Yes (hearing loss both ears) Vision needs: Yes (glasses) Meds Allergies Allergy/AdvReac Type Severity Reaction Status Date / Time NSAIDS (Non-Steroidal Allergy Unknown Unknown Verified 06/27/25 08:37 Anti-Inflamma Assessment and Plan Assessment Anesthesia Assessment: Chart Reviewed Documented by User: Emely Underwood MD 08/07/25 13:20 PMFSH Past Medical History Medical History MARINA (obstructive sleep apnea) Depression HTN (hypertension) Impaired fasting glucose ADD (attention deficit disorder) Reducible umbilical hernia Morbid obesity Seasonal allergies Family History Family History Maternal Grandmother Colon cancer Other FH: mental illness Substance use Surgical History Surgical History Hx of cholecystectomy Hx of appendectomy History of Problems with Anesthesia: No Social History Social History Housing: House Comment: correct count Patient Tobacco Use Status: Former Tobacco user Cigarette Packs Per Day: 1 Years Smoked: 15 e-Cigarette/Vaping Use: Never Used Use of substances other than those prescribed or required for medical reasons: No Advance Directives: No Advance Directives Information Provided: Yes service: No Current occupational status: employed Current occupation: Customer relations Current occupational exposures/hazards: No Cognitive needs: No Hearing needs: Yes (hearing loss both ears) Vision needs: Yes (glasses) Meds Allergies Allergy/AdvReac Type Severity Reaction Status Date / Time NSAIDS (Non-Steroidal Allergy Unknown Unknown Verified 06/27/25 08:37 Anti-Inflamma Exam Airway Mallampati Class: III TM Dist: >3cm Neck ROM: Full Partial: Upper Loose/Missing/Broken Teeth: Yes and Upper Heart: RRR Lungs: CTA Assessment and Plan Assessment Anesthesia Assessment: Anesthesia Plan Discussed Final Anesthetic Review History of Problems with Anesthesia: No NPO: Yes ASA Class: III Final Preanesthetic Review: Meds/Allgs Chart Reviewed, Consent Obtained/Reviewed and Anes Risks/Benef Reviewed Patient Risk: Intermediate Procedure Risk: Low Anesthetic Plan Anesthetic Plan: GA Disposition: Standard PACU
[2025-08-01 14:04] VITALS: BMI 34.9
[2025-08-07] VITALS (8 sets, daily range): BP systolic 129–159; BP diastolic 54–93; PULSE 63–70; RESP 16–18; TEMP 36.6–37.1; O2SAT 96–98; BMI 35.2
[2025-08-07] MEDS: Lactated Ringers 1,000 ML 100 ML IVCONT (10:16)
--- NOTE | 2025-08-07 11:35 | MHC.SHP ---
Pre-Procedural Eval Section A - 24 Hr Update-Section A only Date of Service: 08/07/25 The patient has been examined within 24 hours of the surgical procedure. The History & Physical has been completed within 30 days and I have reviewed it.: Yes Section B - Complete if H&P > 30 days Chief Complaint: Umbilical hernia without obstruction or gangrene Allergies: Allergies Allergy/AdvReac Type Severity Reaction Status Date / Time NSAIDS (Non-Steroidal Allergy Unknown Unknown Verified 06/27/25 08:37 Anti-Inflamma Plan I have reviewed the history and physical and performed a pertinent physical examination on my patient. No changes have occurred unless specified. Time Spent With Patient Time: Total time managing care of this patient today ____ minutes.
--- NOTE | 2025-08-07 13:05 | W.PM.OPN ---
Operative Note Operative Note Date of Service: 08/07/25 Narrative: Preop diagnosis: Reducible umbilical hernia Postop diagnosis: Reducible umbilical hernia Procedure: Repair of reducible umbilical hernia with medium-sized Phasix umbilical mesh Surgeon: Larry Murphy MD assistant professor in family studies: CRISTELA Maddox The patient is a 55-year-old male with a reducible umbilical hernia. He understood the technique of the planned procedure. He was aware of the risks, benefits, and alternatives He was brought to the operating room. He was placed supine under general anesthesia via laryngeal mask airway. The abdomen was prepped and draped in the usual sterile fashion. A surgical time-out was done. The patient received cefazolin 2 g IV preoperatively I infiltrated the planned line of incision with lidocaine 1%. I made a supraumbilical transverse curvilinear incision using a blade 15. This carried down through the full-thickness of the skin subcutaneous fat with electrocautery. I then proceeded to gently lift up the umbilicus as a flap away from the rest of the subcutaneous fat. This was done using Metzenbaum scissors and electrocautery. By doing so I was able to expose the hernia sac and contents. There was note of a large sac. I proceeded to separate the sac from the rest of the subcutaneous layer. I opened this has sac and excised part of this to expose the entire fascial defect. The hernia contained only omental fat. I applied Sejal clamps in the edges of the fascial defect. The fascial defect measured about 3.5 cm in diameter. I therefore used a medium-sized Phasix umbilical hernia mesh. This was positioned under the fascia and flattened. I secured the Prolene straps of the mesh to both sides of the fascia with Prolene 2-0 sutures. The Prolene straps were then trimmed. I closed the fascial defect with a [id number] Maxon 1 stitch The umbilicus was tacked down to the fascia with a Polysorb 3-0 stitch to re-create the dimple. The deep subcutaneous layer was reapposed with Polysorb 3-0 simple interrupted sutures. Skin closure was achieved with Polysorb 4-0 subcuticular running stitch. The area was infiltrated with Marcaine 0.5% for postop analgesia. Dressings were applied and the procedure was completed The patient tolerated procedure well. There were no immediate complications. Initial and final counts of sponges and instruments were correct. Estimated blood loss was less than 25 cc. The patient is extubated without difficulty and transferred to the recovery room with stable vital signs
[2025-08-07] MEDS: oxyCODONE HCl Immed Release 5 MG TABLET PO (13:43)
== END 2025-08-07 14:46 | disposition home or self-care (01) ==
PROVIDERS: PCP Internal Medicine; Visit Provider Surgery
PROC: (CPT 49593; principal; 2025-08-07 11:30)
DX: K42.9 Umbilical hernia without obstruction or gangrene (principal); J30.2 Other seasonal allergic rhinitis; E66.01 Morbid (severe) obesity due to excess calories; R73.01 Impaired fasting glucose; I10 Essential (primary) hypertension; G47.33 Obstructive sleep apnea (adult) (pediatric); Z88.1 Allergy status to other antibiotic agents; Z68.34 Body mass index [BMI] 34.0-34.9, adult; Z79.899 Other long term (current) drug therapy
CPT/HCPCS: 49593; 88302; C1781; J0690; J1100; J2003; J2250; J2405; J2704; J2795; J3010

== ENCOUNTER → 2025-08-07 09:24 | Outpatient (BNV) | payer BC, SELFPAY | PROVIDERS: PCP Internal Medicine; Visit Provider Surgery | DX: K42.9 Umbilical hernia without obstruction or gangrene (principal) | CPT/HCPCS: 49593 ==

== ENCOUNTER 2025-08-20 10:24 | Outpatient (AMB) | payer BC, SELFPAY ==
--- NOTE | 2025-08-20 10:28 | MHC.OFFVIS ---
Vital Signs 08/20/25 10:32 Height 5 ft 11 in Weight 256 lb 8 oz BMI 35.8 Intake Visit Reasons: S/P umbilical hernia w/poss mesh Intake Note: Patient presents for post-op assessment status post Repair of reducible umbilical hernia with medium-sized Phasix umbilical mesh.(08/07/2025) Pt c/o; reports no complaints pertaining to surgery. [employer] Required: No Accompanied by: Self / Same As Patient Allergies NSAIDS (Non-Steroidal Anti-Inflamma Allergy (Unknown, Verified 08/20/25 10:32) Unknown HPI HPI S/P umbilical hernia w/poss mesh: Details: He underwent repair of an umbilical hernia with mesh last 08/07/2025. He tolerated the procedure well. He said he has been doing well since then and denies any significant complaints. [facility] Medical History MAIRNA (obstructive sleep apnea) Depression HTN (hypertension) Impaired fasting glucose ADD (attention deficit disorder) Reducible umbilical hernia Morbid obesity Seasonal allergies Surgical History H/O umbilical hernia repair (~08/07/25) Hx of cholecystectomy Hx of appendectomy Family History Maternal Grandmother Colon cancer Other FH: mental illness Substance use Social History Housing: House Patient Tobacco Use Status: Former Tobacco user Cigarette Packs Per Day: 1 Years Smoked: 15 e-Cigarette/Vaping Use: Never Used service: No Current occupational status: employed Current occupation: Customer relations Current occupational exposures/hazards: No Cognitive needs: No Hearing needs: Yes (hearing loss both ears) Vision needs: Yes (glasses) Review of Systems Const Denies chills and Denies fever(s) Card Denies chest pain GI Denies abdominal pain Physical Exam Vital Signs: BMI result Body Mass Index 35.8 Const General: comfortable and no acute distress GI Other: Umbilical hernia repair site well healed, not infected, repair intact Palpation (GI): Soft to palpation Assessment & Plan Assessment & Plan (1) Reducible umbilical hernia: Code(s): K42.9 - Umbilical hernia without obstruction or gangrene Category: Medical Plan: Status post repair with mesh. He is doing very well. The repair site is intact. The incision is well healed. I advised him to avoid lifting anything more than 20 lb for at least 3 more weeks. He can otherwise follow up with me on a p.r.n. basis Coding Level of Care Code Global (86375) Diagnoses Reducible umbilical hernia K42.9
[2025-08-20 10:32] VITALS: BMI 35.8
== END 2025-08-20 10:50 | disposition home or self-care (01) ==
LOC: HO.HGS 10:24
PROVIDERS: PCP Internal Medicine; Visit Provider Surgery
DX: K42.9 Umbilical hernia without obstruction or gangrene (principal)
CPT/HCPCS: 99213